=== PATIENT | female | born 1950 | race Caucasian/White ===

== ENCOUNTER → 2016-07-25 | Outpatient (CLI) | payer BC ==
[~2016-07-25] MED LIST: CPR500 PO; DLN100 PO; LEVE500T13 PO; LEVE750T PO; MTR500 PO; SACC250C3 PO
--- NOTE | 2016-07-26 14:39 | EEG Procedure Note ---
EEG Procedure Note Date of Service Jul 25, 2016. Start / End Times Start Time: 1:51 PM End Time: 2:[address] Herrera History This is a 66-year-old female who presents with a history of epilepsy and brain tumor removal in November 2015. EEG for further evaluation of seizure etiology and medication management. Home Medication List Scheduled Levetiracetam (Keppra), 750 MG PO QPM Phenytoin Sodium (Dilantin), 100 MG PO QPM Description This is a 21 electrode EEG with a single channel dedicated to limited EKG. The electrodes were placed in accordance with the International 10-20 system. At the start of the recording the patient was in an awake state. Background was well organized and composed of mixed alpha and beta frequencies. There was a symmetric well-formed moderate amplitude 9-10 Hz posterior dominant rhythm that was reactive to eye opening and closure. Hyperventilation was not done. Intermittent photic stimulation at various frequencies produced no abnormalities. Sleep was indicated by vertex waves and symmetric sleep spindles. There was near continuous mild theta slowing in the left temporal region. Interpretation This is an abnormal routine EEG secondary to near continuous mild slowing in the left temporal region. There was no electrographic seizures or epileptiform discharges. Clinical Correlation This EEG indicates a structural or functional cerebral dysfunction in the left temporal area. This would be consistent with the patient's known neurosurgery in that area. An EEG does not rule out seizures or epilepsy if there is a strong clinical suspicion.
== END | disposition home or self-care (01) ==
LOC: C.NEUR 13:35
PROVIDERS: ATTEND Family Medicine
DX: G40.309 Generalized idiopathic epilepsy and epileptic syndromes, not intractable, without status epilepticus (principal)

== ENCOUNTER → 2016-07-28 | Outpatient (CLI) | payer BC ==
[~2016-07-28] MED LIST changes: +GADAVIST IV PRN
--- NOTE | 2016-07-28 17:58 | DIAGNOSTIC IMAGING REPORT ---
MRI OF THE BRAIN WITHOUT AND WITH IV CONTRAST CLINICAL HISTORY: MENINGIOMA postoperative evaluation COMPARISON STUDY: 11/03/2015 TECHNIQUE: Utilizing a 1.5 Joselyn magnet and dedicated coil, multiplanar, multiecho imaging of the brain was performed pre and postcontrast administration. IV administration of 8.5 mL of Gadavist contrast was uneventful. FINDINGS: Interval resection of the large left sphenoid wing meningioma. No evidence for significant postcontrast residual. Small postprocedural arachnoid cyst medial aspect left temporal lobe at its inferior margin. Ventricular system is now midline. Structures the sella and parasellar region currently are unremarkable. There is no evidence for significant component of residual postcontrast enhancement. Pontine region is unremarkable. Third and fourth ventricles are now midline. Signal characteristics the cerebellar as well as cerebral hemispheres currently are unremarkable. There is no evidence for residual mass or collection. IMPRESSION: 1. Interval resection of what appears to be the entire left sphenoid wing meningioma. As described. 2. No significant residual or significant postcontrast enhancement. 3. Small focus of encephalomalacia versus a small arachnoid cyst medial inferior left temporal fossa. This presumably has a postoperative finding. Electronically signed by: Marquis Flores M.D. 07/28/2016 5:56 PM Dictated Date/Time: 07/28/2016 5:50 PM
== END | disposition home or self-care (01) ==
LOC: C.MRI 16:29
PROVIDERS: ATTEND Neurological Surgery
DX: D32.9 Benign neoplasm of meninges, unspecified (principal)

== ENCOUNTER 2016-11-15 07:36 | Inpatient (IN) | payer BC ==
[~2016-11-15] VITALS: Ht 162.6 cm; Wt 56.1 kg
[~2016-11-15 07:36] MED LIST changes: -CPR500 PO; -GADAVIST IV PRN; -LEVE500T13 PO; -MTR500 PO; -SACC250C3 PO
[2016-11-15] MEDS ORDERED: SODIUM CHLORIDE 0.9% 1000ML 1,000 ML IV STA (07:52)
[2016-11-15] MEDS ORDERED: MoRPHine SULFATE 4 MG/ML 1 ML CARP\\VIAL IV STA ×2 (07:52→11:45)
[2016-11-15] MEDS ORDERED: OPTIRAY 320 IV PRN (08:00)
[2016-11-15] MEDS ORDERED: LEVE500T13 PO (08:02)
[2016-11-15 08:10] LABS: BASO % 0.6 %; BASO ABS # 0.05 K/uL (0-0.2); COMPLETE YES; EOS % 1.2 %; IG% 0.2 %; LYMPH % 15.8 %; LYMPH ABS # 1.36 K/uL (1.2-3.4); MEAN CELL VOLUME 88.6 fL (80-100); MEAN CORPUSCULAR HEMOGLOBIN 30.5 pg (25-34); MEAN CORPUSCULAR HGB CONC 34.4 g/dl (32-36); MEAN PLATELET VOLUME 12.3 fL (7.4-10.4); MONO % 8.6 %; NEUT % 73.6 %; PLATELET COUNT 211 K/uL (130-400); RED BLOOD COUNT 4.63 M/uL (4.2-5.4); WHITE BLOOD COUNT 8.59 K/uL (4.8-10.8)
[2016-11-15 08:32] LABS: BUN/CREATININE RATIO 23.5 (10-20); C-REACTIVE PROTEIN 12.8 mg/dl (0-0.29); CREATININE 0.72 mg/dl (0.60-1.20); POTASSIUM 3.6 mmol/L (3.5-5.1)
[2016-11-15 08:43] LABS: CALCIUM 8.4 mg/dl (8.5-10.1)
[2016-11-15 09:12] LABS: MANUAL MICROSCOPIC REQUIRED? NO; REVIEW REQ? NO; URINE APPEARANCE CLEAR (CLEAR); URINE BILIRUBIN NEG (NEG); URINE COLOR DK YELLOW; URINE EPITHELIAL CELL AUTO >30 /lpf (0-5); URINE NITRITE NEG (NEG); URINE PH 5.5 (4.5-7.5); URINE SPECIFIC GRAVITY 1.025 (1.000-1.030); UROBILINOGEN NEG (NEG)
--- NOTE | 2016-11-15 10:38 | DIAGNOSTIC IMAGING REPORT ---
CT ABD/PELVIS IV AND ORAL CONT CLINICAL HISTORY: Abdominal pain COMPARISON STUDY: None. TECHNIQUE: Following the IV administration of 92 mL of Optiray-320, CT scan of the abdomen and pelvis was performed from the lung bases to the proximal femurs. Images are reviewed in the axial, sagittal, and coronal planes. IV contrast was administered without complication. CT DOSE: 344.41 mGycm FINDINGS: Lower chest: There are mild basilar atelectatic changes. Liver: The contrast-enhanced liver is normal in size, contour, and attenuation. There is no intrahepatic biliary ductal dilatation. The hepatic veins and portal veins are patent. Gallbladder: Unremarkable. Spleen: Normal in size and attenuation. Pancreas: Unremarkable. Adrenal glands: Unremarkable. Kidneys: There is a 4 mm fat-containing left adrenal nodule consistent with an angiomyolipoma. There is mild fullness of each renal collecting system. Bowel: There are no transition zones indicate bowel obstruction. The appendix appears normal. There is sausagelike thickening of the sigmoid colon with infiltration of the pericolonic fat. There is an equivocal 13 mm intramural abscess. The findings likely represent acute diverticulitis. Peritoneum: There is no intraperitoneal free air or abdominal ascites. Vasculature: The abdominal aorta is normal in course and caliber. Adenopathy: None. Pelvic viscera: The bladder, and pelvic viscera are unremarkable. Skeletal structures: No destructive osseous lesions are seen. IMPRESSION: 1. Acute sigmoid diverticulitis. Possible 13 mm intramural abscess. No evidence of bowel obstruction. No evidence of free air. Electronically signed by: Efra Singh M.D. 11/15/2016 10:36 AM Dictated Date/Time: 11/15/2016 10:31 AM
[2016-11-15] MEDS ORDERED: PIPERACILLIN/TAZOBACTAM 4.5 GM/100ML D5W IV STA (11:30)
--- NOTE | 2016-11-15 11:30 | EMERGENCY ROOM VISIT NOTE ---
History First contact with patient: 07:45 Chief Complaint: ABDOMINAL PAIN Stated Complaint: SEVERE ABD. PAIN Nursing Triage Summary: ibs flare up for 2 weeks cramping and diarrhea History of Present Illness The patient is a 66 year old female who presents to the Emergency Room with complaints of lower abdominal pain for the past 2 weeks. Describes the pain as constant, crampy and occasionally sharp, 7/10. She has taken Motrin for her pain with some improvement, last dose was yesterday. She states her symptoms initially started with some diarrhea, now she has felt constipated for the past several days. She denies any bloody or black tarry stools. She states this is a new problem for her and she has never had pain like this before. No history of abdominal surgeries. She denies fevers, chills, nausea, vomiting, back pain , chest pain, shortness of breath, vaginal discharge or bleeding, dysuria, hematuria. Review of Systems GENERAL: + Fatigue. Denies fevers, chills, malaise, unintentional weight changes. HEENT: Denies dizziness, visual problems, hearing loss, tinnitus. Denies difficulty swallowing or oral lesions. PULMONARY: Denies cough, shortness of breath, sputum production or hemoptysis. CARDIOVASCULAR: Denies chest pain, palpitations, dyspnea on exertion, orthopnea or peripheral edema. GASTROINTESTINAL: + Abdominal pain, diarrhea, constipation. Denies nausea, vomiting, or hematochezia. GENITOURINARY: Denies dysuria, frequency, urgency or nocturia. Denies hematuria. Denies vaginal discharge or bleeding. NEUROLOGIC: Denies history of epilepsy, CVA, TIA or chronic headaches. History of brain tumor that was surgically removed. MUSCULOSKELETAL: Denies history of joint tenderness/swelling. SKIN: Denies rashes or lesions. PSYCHIATRIC: Denies history of depression or mental illness. ENDOCRINE: Denies history of diabetes, thyroid disorders, abnormal hair growth or sexual dysfunction. Past Medical/Surgical History Medical Problems: (1) Colonic diverticular abscess (2) IBS (irritable bowel syndrome) Surgical Problems: (1) Meningioma Family History Diabetes mellitus FH: heart disease Seizures Social History Smoking Status: Never Smoker Drug Use: none Marital Status: Housing Status: lives with family Current/Historical Medications Scheduled Levetiracetam (Keppra), 500 MG PO QPM Allergies Coded Allergies: NUTS (Verified Allergy, Intermediate, unknown, 11/15/16) Sharla (Verified Allergy, Intermediate, unknown, 11/15/16) Physical Exam Vital Signs Date Time Temp Pulse Resp B/P (MAP) Pulse Ox O2 Delivery O2 Flow Rate FiO2 11/15/16 12:50 98 Room Air 11/15/16 11:53 70 15 122/66 98 Room Air 11/15/16 11:01 65 18 109/65 99 Room Air 11/15/16 09:28 66 18 96/55 98 Room Air 11/15/16 07:41 36.6 88 20 113/69 97 Room Air Physical Exam CONSTITUTIONAL: No acute distress. Nontoxic appearing. Well appearing and well nourished. Mildly dehydrated. Alert and oriented X 4 with normal affect. HEENT: Normocephalic, atraumatic. Pupils equal, round and reactive to light, EOMI. TMs normal. Pharynx normal. Dry mucous membranes. NECK: Supple, full active range of motion without discomfort. RESPIRATORY: Clear to auscultation bilaterally with no wheezing, crackles, rhonchi or stridor. Equal expansion bilaterally. CARDIOVASCULAR: Regular rate and rhythm with no murmurs, rubs or gallops. Normal peripheral perfusion. No edema. GASTROINTESTINAL: Diffusely tender in the bilateral lower quadrants. No rebound , no guarding. Soft, nondistended. Bowel sounds present in all quadrants. MUSCULOSKELETAL: Full range of motion of all joints without discomfort. INTEGUMENTARY: No rash or other significant dermatologic conditions noted. NEUROLOGIC: Cranial nerves II-XII grossly intact. No focal neurologic deficits noted. Medical Decision & Procedures ER Provider Diagnostic Interpretation: CT ABD/PELVIS IV AND ORAL CONT CLINICAL HISTORY: Abdominal pain COMPARISON STUDY: None. TECHNIQUE: Following the IV administration of 92 mL of Optiray-320, CT scan of the abdomen and pelvis was performed from the lung bases to the proximal femurs. Images are reviewed in the axial, sagittal, and coronal planes. IV contrast was administered without complication. CT DOSE: 344.41 mGycm FINDINGS: Lower chest: There are mild basilar atelectatic changes. Liver: The contrast-enhanced liver is normal in size, contour, and attenuation. There is no intrahepatic biliary ductal dilatation. The hepatic veins and portal veins are patent. Gallbladder: Unremarkable. Spleen: Normal in size and attenuation. Pancreas: Unremarkable. Adrenal glands: Unremarkable. Kidneys: There is a 4 mm fat-containing left adrenal nodule consistent with an angiomyolipoma. There is mild fullness of each renal collecting system. Bowel: There are no transition zones indicate bowel obstruction. The appendix appears normal. There is sausagelike thickening of the sigmoid colon with infiltration of the pericolonic fat. There is an equivocal 13 mm intramural abscess. The findings likely represent acute diverticulitis. Peritoneum: There is no intraperitoneal free air or abdominal ascites. Vasculature: The abdominal aorta is normal in course and caliber. Adenopathy: None. Pelvic viscera: The bladder, and pelvic viscera are unremarkable. Skeletal structures: No destructive osseous lesions are seen. IMPRESSION: 1. Acute sigmoid diverticulitis. Possible 13 mm intramural abscess. No evidence of bowel obstruction. No evidence of free air. Laboratory Results 11/15/16 07:50 Red Blood Count 4.63, Mean Corpuscular Volume 88.6, Mean Corpuscular Hemoglobin 30.5, Mean Corpuscular Hemoglobin Concent 34.4, Mean Platelet Volume 12.3, Neutrophils (%) (Auto) 73.6, Lymphocytes (%) (Auto) 15.8, Monocytes (%) (Auto) 8.6, Eosinophils (%) (Auto) 1.2, Basophils (%) (Auto) 0.6, Neutrophils # (Auto) 6.32, Lymphocytes # (Auto) 1.36, Monocytes # (Auto) 0.74, Eosinophils # (Auto) 0.10, Basophils # (Auto) 0.05 11/15/16 07:50 Test 11/15/16 07:50 11/15/16 08:05 White Blood Count 8.59 K/uL (4.8-10.8) Red Blood Count 4.63 M/uL (4.2-5.4) Hemoglobin 14.1 g/dL (12.0-16.0) Hematocrit 41.0 % (37-47) Mean Corpuscular Volume 88.6 fL (80-100) Mean Corpuscular Hemoglobin 30.5 pg (25-34) Mean Corpuscular Hemoglobin Concent 34.4 g/dl (32-36) Platelet Count 211 K/uL (130-400) Mean Platelet Volume 12.3 fL (7.4-10.4) Neutrophils (%) (Auto) 73.6 % Lymphocytes (%) (Auto) 15.8 % Monocytes (%) (Auto) 8.6 % Eosinophils (%) (Auto) 1.2 % Basophils (%) (Auto) 0.6 % Neutrophils # (Auto) 6.32 K/uL (1.4-6.5) Lymphocytes # (Auto) 1.36 K/uL (1.2-3.4) Monocytes # (Auto) 0.74 K/uL (0.11-0.59) Eosinophils # (Auto) 0.10 K/uL (0-0.5) Basophils # (Auto) 0.05 K/uL (0-0.2) RDW Standard Deviation 40.7 fL (36.4-46.3) RDW Coefficient of Variation 12.6 % (11.5-14.5) Immature Granulocyte % (Auto) 0.2 % Immature Granulocyte # (Auto) 0.02 K/uL (0.00-0.02) Erythrocyte Sedimentation Rate 39 mm/hr (0-21) Anion Gap 4.0 mmol/L (3-11) Est Creatinine Clear Calc Drug Dose 67.3 ml/min Estimated GFR () 101.9 Estimated GFR (Non- 87.9 BUN/Creatinine Ratio 23.5 (10-20) Calcium Level 8.4 mg/dl (8.5-10.1) Total Bilirubin 1.0 mg/dl (0.2-1) Direct Bilirubin 0.2 mg/dl (0-0.2) Aspartate Amino Transf (AST/SGOT) 10 U/L (15-37) Alanine Aminotransferase (ALT/SGPT) 13 U/L (12-78) Alkaline Phosphatase 79 U/L (45-117) C-Reactive Protein 12.80 mg/dl (0-0.29) Total Protein 6.9 gm/dl (6.4-8.2) Albumin 3.1 gm/dl (3.4-5.0) Lipase 117 U/L (73-393) Urine Color DK YELLOW Urine Appearance CLEAR (CLEAR) Urine pH 5.5 (4.5-7.5) Urine Specific [place] 1.025 (1.000-1.030) Urine Protein NEG (NEG) Urine Glucose (UA) NEG (NEG) Urine Ketones TRACE (NEG) Urine Occult Blood 1+ (NEG) Urine Nitrite NEG (NEG) Urine Bilirubin NEG (NEG) Urine Urobilinogen NEG (NEG) Urine Leukocyte Esterase TRACE (NEG) Urine WBC (Auto) 1-5 /hpf (0-5) Urine RBC (Auto) 5-10 /hpf (0-4) Urine Hyaline Casts (Auto) 5-10 /lpf (0-5) Urine Epithelial Cells (Auto) >30 /lpf (0-5) Urine Bacteria (Auto) NEG (NEG) Medications Administered Medications (Trade) Dose Ordered Sig/Jewel Route Start Time Stop Time Status Last Admin Dose Admin Sodium Chloride 1,000 ml @ 999 mls/hr Q1H1M STAT IV 11/15/16 07:52 11/15/16 08:52 DC 11/15/16 07:52 999 MLS/HR Morphine Sulfate (MoRPHine SULFATE INJ) 4 mg NOW STAT IV 11/15/16 07:52 11/15/16 07:56 DC 11/15/16 07:52 4 MG Piperacillin Sod/ Tazobactam Sod (Zosyn Iv) 4.5 gm NOW STAT IV 11/15/16 11:30 11/15/16 11:31 DC 11/15/16 11:30 4.5 GM Morphine Sulfate (MoRPHine SULFATE INJ) 4 mg NOW STAT IV 11/15/16 11:45 11/15/16 11:46 DC 11/15/16 11:50 4 MG Medical Decision CC: Patient presenting with complaint of lower abdominal pain Interpretation of Labs: No leukocytosis, no anemia, no significant electrolyte abnormalities, normal renal function, normal liver function, no UTI. Differential Diagnosis: Includes, but not limited to appendicitis, colitis, diverticulitis, inflammatory bowel disease, IBS, constipation, gastroenteritis, UTI. Medication Reconciliation: I attest that I have personally reviewed the patient' s current medication list. Vital signs review: I reviewed the patient's vital signs and interpret them as follows: T: Afebrile; BP: Normotensive; HR: Within normal limits; RR: Within normal limits; Pulse Ox: Normal limits on room air. Blood pressure screening: The patient was found to have normal blood pressure on screening and does not require follow-up for repeat blood pressure check. Summary: Patient was evaluated at bedside, history of physical exam performed. Alert and oriented, no acute distress but does appear to be in some pain. Diffuse lower abdomen tenderness on exam. No rebound or guarding, no peritoneal signs. Orders were placed at bedside for labs, UA, IV fluids and pain medication, CT abdomen/pelvis to evaluate for acute intra-abdominal abnormalities. Patient discussed with Dr. Rojas, who agrees with my assessment and plan. Labs reviewed, grossly unremarkable as discussed above. CT reviewed, shows acute diverticulitis with questionable developing abscess. IV Zosyn ordered. Patient reassessed multiple times throughout ED stay, pain is adequately managed with IV morphine and she appears more comfortable. I discussed results with patient and plan for admission. She verbalized understanding and is agreeable to admission at this time. I discussed with hospitalist for admission, Dr. Caruso agreeable to admission. Impression Primary Impression: Acute diverticulitis Departure Information Referrals Billy Herrera M.D. (PCP) Patient Instructions [facility]
[2016-11-15] MEDS ORDERED: MoRPHine SULFATE 4 MG/ML 1 ML CARP\\VIAL IV PRN (12:45)
[2016-11-15 12:50] VITALS: O2SAT 98; Ht 162.6 cm; Wt 56.1 kg
[2016-11-15] MEDS ORDERED: MoRPHine SULFATE 2 MG/ML CARP IV PRN (13:00)
[2016-11-15] MEDS ORDERED: PIPERACILL/TAZOBAC CONSULT ACTIVE PRN (13:15)
[2016-11-15] MEDS ORDERED: VANCOMYCIN CONSULT ACTIVE PRN (13:15)
[2016-11-15] MEDS ORDERED: VANCOMYCIN INJ 1,250 MG in SODIUM CHLORIDE 0.9% 250ML 250 ML IV SCH (13:30)
[2016-11-15 14:41] VITALS: BP 103/64; PULSE 76; TEMP 36.7; O2SAT 99
--- NOTE | 2016-11-15 14:41 | Pharmacy Progress Note ---
Pharmacy Abx Initial Consult Date of Service Nov 15, 2016. Pharmacy Dosing Scope Date of Consult: 11/15/16 Pharmacy is consulted to initiate Vancomycin/Zosyn IV dosing therapy, order appropriate labs and adjust drug dose/frequency. Subjective The patient is a 66 year old female admitted on Nov 15, 2016 at 12:51 with severe abdominal pain. Objective Height (Feet): 5 Height (Inches): 4.00 Weight (Kilograms): 56.100 Vital Signs (Past 12Hrs) Vital Signs Past 12 Hours Date Time Temp Pulse Resp B/P (MAP) Pulse Ox O2 Delivery O2 Flow Rate FiO2 11/15/16 13:42 36.6 70 18 122/66 98 11/15/16 13:35 70 11/15/16 13:22 75 18 122/66 98 Room Air 11/15/16 12:50 98 Room Air 11/15/16 11:53 70 15 122/66 98 Room Air 11/15/16 11:01 65 18 109/65 99 Room Air 11/15/16 09:28 66 18 96/55 98 Room Air 11/15/16 07:41 36.6 88 20 113/69 97 Room Air Lab Results (24Hrs) Test 11/15/16 07:50 11/15/16 08:05 White Blood Count 8.59 K/uL (4.8-10.8) Red Blood Count 4.63 M/uL (4.2-5.4) Hemoglobin 14.1 g/dL (12.0-16.0) Hematocrit 41.0 % (37-47) Mean Corpuscular Volume 88.6 fL (80-100) Mean Corpuscular Hemoglobin 30.5 pg (25-34) Mean Corpuscular Hemoglobin Concent 34.4 g/dl (32-36) Platelet Count 211 K/uL (130-400) Mean Platelet Volume 12.3 fL (7.4-10.4) Neutrophils (%) (Auto) 73.6 % Lymphocytes (%) (Auto) 15.8 % Monocytes (%) (Auto) 8.6 % Eosinophils (%) (Auto) 1.2 % Basophils (%) (Auto) 0.6 % Neutrophils # (Auto) 6.32 K/uL (1.4-6.5) Lymphocytes # (Auto) 1.36 K/uL (1.2-3.4) Monocytes # (Auto) 0.74 K/uL (0.11-0.59) Eosinophils # (Auto) 0.10 K/uL (0-0.5) Basophils # (Auto) 0.05 K/uL (0-0.2) RDW Standard Deviation 40.7 fL (36.4-46.3) RDW Coefficient of Variation 12.6 % (11.5-14.5) Immature Granulocyte % (Auto) 0.2 % Immature Granulocyte # (Auto) 0.02 K/uL (0.00-0.02) Erythrocyte Sedimentation Rate 39 mm/hr (0-21) Sodium Level 142 mmol/L (136-145) Potassium Level 3.6 mmol/L (3.5-5.1) Chloride Level 106 mmol/L (98-107) Carbon Dioxide Level 32 mmol/L (21-32) Anion Gap 4.0 mmol/L (3-11) Blood Urea Nitrogen 17 mg/dl (7-18) Creatinine 0.72 mg/dl (0.60-1.20) Est Creatinine Clear Calc Drug Dose 67.3 ml/min Estimated GFR () 101.9 Estimated GFR (Non- 87.9 BUN/Creatinine Ratio 23.5 (10-20) Random Glucose 94 mg/dl (70-99) Calcium Level 8.4 mg/dl (8.5-10.1) Total Bilirubin 1.0 mg/dl (0.2-1) Direct Bilirubin 0.2 mg/dl (0-0.2) Aspartate Amino Transf (AST/SGOT) 10 U/L (15-37) Alanine Aminotransferase (ALT/SGPT) 13 U/L (12-78) Alkaline Phosphatase 79 U/L (45-117) C-Reactive Protein 12.80 mg/dl (0-0.29) Total Protein 6.9 gm/dl (6.4-8.2) Albumin 3.1 gm/dl (3.4-5.0) Lipase 117 U/L (73-393) Urine Color DK YELLOW Urine Appearance CLEAR (CLEAR) Urine pH 5.5 (4.5-7.5) Urine Specific [place] 1.025 (1.000-1.030) Urine Protein NEG (NEG) Urine Glucose (UA) NEG (NEG) Urine Ketones TRACE (NEG) Urine Occult Blood 1+ (NEG) Urine Nitrite NEG (NEG) Urine Bilirubin NEG (NEG) Urine Urobilinogen NEG (NEG) Urine Leukocyte Esterase TRACE (NEG) Urine WBC (Auto) 1-5 /hpf (0-5) Urine RBC (Auto) 5-10 /hpf (0-4) Urine Hyaline Casts (Auto) 5-10 /lpf (0-5) Urine Epithelial Cells (Auto) >30 /lpf (0-5) Urine Bacteria (Auto) NEG (NEG) Assessment & Plan Assessment 66 year old female initiated on Vancomycin and Zosyn IV upon admission for severe abdominal pain. No further info regarding patient available to pharmacy at this time. No cultures pending. Plan Vancomycin IV * Loading dose: 1250 mg (22 mg/kg) * Maintenance dose: 750 mg IV (13.5 mg/kg) every 12 hours * Goal trough level for GI source?: ~15 mcg/mL * Trough level ordered for 11/17/16 @1330 prior to the 1400 dose. Piperacillin/tazobactam * 4.5 g bolus administered over 30 minutes in ED, then 3.375 g IV extended infusion every 8 hours for CrCl greater than 20 mL/min Pharmacy will continue to follow and will adjust dose/frequency as necessary. Thank you.
[2016-11-15] MEDS: NSS + 20MEQ KCL 1000ML 1,000 ML IV SCH (15:25)
--- NOTE | 2016-11-15 15:26 | History and Physical ---
History & Physical Date & Time of Service: Nov 15, 2016 at 15:21 Chief Complaint: Acute Diverticulitis, Colonic Diverticular Abscess Primary Care Physician: Billy Herrera M.D. History of Present Illness Source: patient The patient is a 66-year-old female presents emergency department with complaints of abdominal cramping and diarrhea but she thought was not IBS flareup over the past 2 weeks. His symptoms worsened this morning, and she was presents emergency department for assessment. She has not had any recent travels or sick exposures. She has not had any change in dietary intake. She is not on any medications either prescription or OTC. She denies any blood in stool. She has not had any fevers or chills. Past Medical/Surgical History Medical Problems: (1) IBS (irritable bowel syndrome) Status: Chronic Surgical Problems: (1) Meningioma Status: Resolved Family History Diabetes mellitus FH: heart disease Seizures Social History Smoking Status: Never Smoker Smokeless Tobacco Use: No Alcohol Use: none Drug Use: none Marital Status: Housing status: lives with family Multi-Drug Resistant Organisms History of MDRO: No Allergies Coded Allergies: NUTS (Verified Allergy, Intermediate, unknown, 11/15/16) Parsley (Verified Allergy, Intermediate, unknown, 11/15/16) Home Medications Scheduled Levetiracetam (Keppra), 500 MG PO QPM Review of Systems The patient denies chest pain, palpitations, shortness of breath, cough, lower extremity swelling, vision change, hearing change, sore throat, fevers, chills, sweats, weight change, fatigue, nausea, vomiting, blood in urine or stool, dysuria, urinary frequency or urgency, lightheadedness, dizziness, headache, memory loss, rash, abnormal bruising or bleeding, imbalance, focal or generalized weakness, numbness or tingling in arms or legs, arthralgias or myalgias, back or neck pain, night sweats, or allergy symptoms. The review of systems is otherwise negative other than for that already noted above, and at least 10 systems have been reviewed. Physical Exam Vital Signs Date Time Temp Pulse Resp B/P (MAP) Pulse Ox O2 Delivery O2 Flow Rate FiO2 11/15/16 14:41 36.7 76 16 103/64 (77) 99 11/15/16 13:42 36.6 70 18 122/66 98 11/15/16 13:35 70 11/15/16 13:22 75 18 122/66 98 Room Air 11/15/16 12:50 98 Room Air 11/15/16 11:53 70 15 122/66 98 Room Air 11/15/16 11:01 65 18 109/65 99 Room Air 11/15/16 09:28 66 18 96/55 98 Room Air 11/15/16 07:41 36.6 88 20 113/69 97 Room Air The patient is awake, well-developed and adequately nourished, alert and oriented 3, normocephalic and atraumatic, lying in bed and in no acute distress. HEENT--PERRL, EOMI, mucous membranes and oropharynx dry. Neck--supple, no JVD or bruits, thyroid normal, trachea midline, no adenopathy. Heart--normal S1 and S2, no extra beats, no murmurs, rubs or gallops. Lungs--clear bilaterally with good air movement, no respiratory distress, no accessory muscle use. Abdomen--normal bowel sounds and soft, tender left lower quadrant, nondistended , no hernias or masses, no organomegaly. Extremities--no cyanosis, clubbing or edema. There are good distal pulses b/l. Dermatologic--normal skin turgor, normal color, warm and dry, no abnormal lymph nodes, no rash. Neurologic--cranial nerves II through XII grossly intact, motor and sensory examination normal. Rheumatologic--normal range of motion, nontender, muscles and joints. Psychiatric--normal affect. Diagnostics Laboratory Results Results Past 24 Hours Test 11/15/16 07:50 11/15/16 08:05 Range/Units White Blood Count 8.59 4.8-10.8 K/uL Red Blood Count 4.63 4.2-5.4 M/uL Hemoglobin 14.1 12.0-16.0 g/dL Hematocrit 41.0 37-47 % Mean Corpuscular Volume 88.6 80-100 fL Mean Corpuscular Hemoglobin 30.5 25-34 pg Mean Corpuscular Hemoglobin Concent 34.4 32-36 g/dl Platelet Count 211 130-400 K/uL Mean Platelet Volume 12.3 7.4-10.4 fL Neutrophils (%) (Auto) 73.6 % Lymphocytes (%) (Auto) 15.8 % Monocytes (%) (Auto) 8.6 % Eosinophils (%) (Auto) 1.2 % Basophils (%) (Auto) 0.6 % Neutrophils # (Auto) 6.32 1.4-6.5 K/uL Lymphocytes # (Auto) 1.36 1.2-3.4 K/uL Monocytes # (Auto) 0.74 0.11-0.59 K/uL Eosinophils # (Auto) 0.10 0-0.5 K/uL Basophils # (Auto) 0.05 0-0.2 K/uL RDW Standard Deviation 40.7 36.4-46.3 fL RDW Coefficient of Variation 12.6 11.5-14.5 % Immature Granulocyte % (Auto) 0.2 % Immature Granulocyte # (Auto) 0.02 0.00-0.02 K/uL Erythrocyte Sedimentation Rate 39 0-21 mm/hr Sodium Level 142 136-145 mmol/L Potassium Level 3.6 3.5-5.1 mmol/L Chloride Level 106 98-107 mmol/L Carbon Dioxide Level 32 21-32 mmol/L Anion Gap 4.0 3-11 mmol/L Blood Urea Nitrogen 17 7-18 mg/dl Creatinine 0.72 0.60-1.20 mg/dl Est Creatinine Clear Calc Drug Dose 67.3 ml/min Estimated GFR () 101.9 Estimated GFR (Non- 87.9 BUN/Creatinine Ratio 23.5 10-20 Random Glucose 94 70-99 mg/dl Calcium Level 8.4 8.5-10.1 mg/dl Total Bilirubin 1.0 0.2-1 mg/dl Direct Bilirubin 0.2 0-0.2 mg/dl Aspartate Amino Transf (AST/SGOT) 10 15-37 U/L Alanine Aminotransferase (ALT/SGPT) 13 12-78 U/L Alkaline Phosphatase 79 45-117 U/L C-Reactive Protein 12.80 0-0.29 mg/dl Total Protein 6.9 6.4-8.2 gm/dl Albumin 3.1 3.4-5.0 gm/dl Lipase 117 73-393 U/L Urine Color DK YELLOW Urine Appearance CLEAR CLEAR Urine pH 5.5 4.5-7.5 Urine Specific [place] 1.025 1.000-1.030 Urine Protein NEG NEG Urine Glucose (UA) NEG NEG Urine Ketones TRACE NEG Urine Occult Blood 1+ NEG Urine Nitrite NEG NEG Urine Bilirubin NEG NEG Urine Urobilinogen NEG NEG Urine Leukocyte Esterase TRACE NEG Urine WBC (Auto) 1-5 0-5 /hpf Urine RBC (Auto) 5-10 0-4 /hpf Urine Hyaline Casts (Auto) 5-10 0-5 /lpf Urine Epithelial Cells (Auto) >30 0-5 /lpf Urine Bacteria (Auto) NEG NEG Diagnostic Radiology Patient Name: SUNITHA MUÑOZ Unit Number: [id number] Dictated: 11/15/161030 Transcribed: 11/15/161030 ARG Printed Date/Time: [~ rep prt dt]/[~ rep prt tm] [~ rep ct labl] - [~ rep ct ivnm] [facility] Radiology Department [place], [place] [id number] Dictated: 11/15/161030 Transcribed: 11/15/161030 ARG Printed Date/Time: [~ rep prt dt]/[~ rep prt tm] [~ rep ct labl] - [~ rep ct ivnm] CT ABD/PELVIS IV AND ORAL CONT CLINICAL HISTORY: Abdominal pain COMPARISON STUDY: None. TECHNIQUE: Following the IV administration of 92 mL of Optiray-320, CT scan of the abdomen and pelvis was performed from the lung bases to the proximal femurs. Images are reviewed in the axial, sagittal, and coronal planes. IV contrast was administered without complication. CT DOSE: 344.41 mGycm FINDINGS: Lower chest: There are mild basilar atelectatic changes. Liver: The contrast-enhanced liver is normal in size, contour, and attenuation. There is no intrahepatic biliary ductal dilatation. The hepatic veins and portal veins are patent. Gallbladder: Unremarkable. Spleen: Normal in size and attenuation. Pancreas: Unremarkable. Adrenal glands: Unremarkable. Kidneys: There is a 4 mm fat-containing left adrenal nodule consistent with an angiomyolipoma. There is mild fullness of each renal collecting system. Bowel: There are no transition zones indicate bowel obstruction. The appendix appears normal. There is sausagelike thickening of the sigmoid colon with infiltration of the pericolonic fat. There is an equivocal 13 mm intramural abscess. The findings likely represent acute diverticulitis. Peritoneum: There is no intraperitoneal free air or abdominal ascites. Vasculature: The abdominal aorta is normal in course and caliber. Adenopathy: None. Pelvic viscera: The bladder, and pelvic viscera are unremarkable. Skeletal structures: No destructive osseous lesions are seen. IMPRESSION: 1. Acute sigmoid diverticulitis. Possible 13 mm intramural abscess. No evidence of bowel obstruction. No evidence of free air. Electronically signed by: Efra Singh M.D. 11/15/2016 10:36 AM Dictated Date/Time: 11/15/2016 10:31 AM The status of this report is Signed. Draft = Not yet reviewed or approved by Radiologist. Signed = Reviewed and approved by Radiologist. <AttendingPhy></AttendingPhy> <FamilyPhy>Billy Herrera M.D.</FamilyPhy> < PrimaryPhy>Billy Herrera M.D.</PrimaryPhy> <UnitNumber>[id number]</ UnitNumber> <VisitNumber>[id number]</VisitNumber> <PatientName>ADRIANA MUÑOZWOJCIECHCosta< /PatientName> <DateOfBirth>1950</DateOfBirth> <Location>[facility]</Location> < ServiceDate>11/15/16</ServiceDate> <MNE>ESINDI</MNE> <OrderingPhy>Elaine Barillas</OrderingPhy> <OrderingPhyMNE>f rep ord dr chaney</OrderingPhyMNE> < DictatingPhyMNE>f rep dict dr chaney</DictatingPhyMNE> <CCListMNE>f rep ct shiv</ CCListMNE> <AdmittingPhyMNE>f pt admit dr chaney</AdmittingPhyMNE> <AttendingPhyMNE >f pt attend dr chaney</AttendingPhyMNE> <ConsultingPhyMNE>f pt consult dr chaney</ConsultingPhyMNE> <FamilyPhyMNE>f pt fam dr chaney</FamilyPhyMNE> <OtherPhyMNE>f pt other dr chaney</OtherPhyMNE> < PrimaryPhyMNE>f pt prim care dr chaney</PrimaryPhyMNE> <ReferringPhyMNE>f pt referring dr chaney</ReferringPhyMNE> Impression Assessment and Plan Acute diverticulitis with transmural abscess--the patient be admitted to the medical surgical floor. She'll be allowed sips of water. Place on normal saline with potassium chloride 20 mEq 100 mils per hour, Zosyn 3.375 mg IV every 6 hours, Protonix 40 mg IV daily, Zofran 4 mg IV every 6 hours when necessary. She has never had a colonoscopy. Consult gastroenterology to see patient in hospital and will need to be seen status post hospital follow-up. Follow serial laboratories. Seizure disorder--continue Keppra 500 mg by mouth every evening. Level of Care Med/Surg Advanced Directives Existing Advance Directive: No Existing Living Will: No Existing Power of Craft Superintendent: No Resuscitation Status FULL RESUSCITATION VTE Prophylaxis VTE Risk Assessment Done? Y/N: Yes Risk Level: Moderate Given or contraindicated: SCD's Social Service Consult None Apply
[2016-11-15 16:00] VITALS: O2SAT 99
[2016-11-15] MEDS: RANITIDINE IV 50 MG in DEXTROSE 5% 100ML 100 ML IV SCH (16:24)
[2016-11-15] MEDS: PIPERACILL/TAZOBAC IV 3.375 GM in DEXTROSE 5% 100ML 100 ML IV SCH (17:07)
[2016-11-15] MEDS: ACETAMINOPHEN IV 100 ML IV PRN (19:31)
[2016-11-15] MEDS: LEVETIRACETAM 500 MG TAB PO SCH (20:21)
--- NOTE | 2016-11-15 21:00 | GASTROINTESTINAL CONSULTATION ---
DATE OF CONSULTATION: 11/15/2016 PAST MEDICAL HISTORY: History of a meningioma, irritable bowel syndrome. PAST SURGICAL HISTORY: Meningioma removal, last year. ALLERGIES: None. MEDICATIONS AT HOME: Include Keppra. MEDICATIONS AT PRESENT: Include vancomycin 750 mg IV q. 12 hours, Zosyn 3.375 grams IV q. 8 hours, Zantac 50 mg IV q. 8 hours, morphine p.r.n. abdominal pain. SOCIAL HISTORY: She denies any tobacco, alcohol or illicit drug use. She is . FAMILY HISTORY: Negative for GI malignancy or inflammatory bowel disease. REVIEW OF SYSTEMS: Negative x10 system review other than pertinent positives listed in the HPI. PHYSICAL EXAMINATION: VITAL SIGNS: Temp 36.7, pulse 76, respirations 16, blood pressure 103/64, pulse ox 99% on room air. GENERAL: She is awake, cooperative, mild distress. HEAD: Normocephalic, atraumatic. EYES: Pupils equally round. Extraocular muscles are intact. ENT: External evaluation of ears and nose are normal. Oropharynx is clear. NECK: Soft, supple. No JVD or lymphadenopathy. CHEST: Clear to auscultation bilaterally. CARDIOVASCULAR: Regular rate and rhythm. ABDOMEN: Soft, tender in left lower quadrant. Nondistended. Positive bowel sounds. There is no hepatosplenomegaly or stigmata of chronic liver disease. EXTREMITIES: No clubbing, cyanosis, or edema. SKIN: Soft, pink. Good turgor. LABORATORY STUDIES AND RADIOGRAPHIC STUDIES: Reviewed in the HPI. IMPRESSION: Tom Borrero is a 66-year-old female with acute diverticulitis with abscess formation. PLAN: At the present time, I would recommend the patient continue on IV Zosyn and vancomycin therapy as per the primary team. I would recommend surgical consultation secondary to abscess formation as she may need further intervention if she does not respond clinically to IV antibiotics. Secondary considerations could be for transfer to a tertiary care center for drainage of the abscess if it does not resolve spontaneously with IV antibiotic therapy. She will need an outpatient colonoscopy in 6 weeks following completion of her antibiotic therapy though she has no indication for emergent endoscopic procedure at this time and in fact endoscopic procedure would be contraindicated as there is an increased risk for colonic perforation with concurrent acute diverticulitis. Once again, thanks for allowing me to participate in the care of this patient. If you have any further questions, please do not hesitate in contacting me.
--- NOTE | 2016-11-15 21:05 | GASTROINTESTINAL CONSULTATION ---
DATE OF CONSULTATION: 11/15/2016 ATTENDING PHYSICIAN: Dr. Vargas. CONSULTING PHYSICIAN: Dr. Murcia. REASON FOR CONSULTATION: Diverticular abscess. HISTORY OF PRESENT ILLNESS: Tom Borrero is a pleasant 66-year-old female, who presented to the Department of Emergency Medicine on November with complaints of left lower quadrant abdominal pain. She stated that her pain was aching, chronic 6-7/10 in intensity, nonradiating. Upon presentation to the Department of Emergency Medicine, she had laboratory studies which showed a white blood cell count of 8.59. Her liver panel was unremarkable. Her C-reactive protein was 12.8, BUN was unremarkable. She had a CT scan of the abdomen and pelvis performed which showed a sigmoid diverticulitis with a possible 13 mm intramural abscess with no evidence of bowel obstruction and no evidence of free air. She subsequently was admitted. She was placed on Zosyn therapy as well as vancomycin therapy and was given IV fluids and morphine for pain control and we were consulted. At the time that I saw the patient, she states that she is feeling slightly improved since her arrival, though does continue to complain of left lower quadrant abdominal pain rated as 4/10 in intensity, nonradiating with no exacerbating factors. It is alleviated with morphine therapy. She states she has never had diverticulitis before nor has she ever had a colonoscopy in the past and states that she is overall generally well and denies any further complaints at this time. PAST MEDICAL HISTORY: History of a meningioma, irritable bowel syndrome. PAST SURGICAL HISTORY: Meningioma removal, last year. ALLERGIES: None. MEDICATIONS AT HOME: Include Keppra. MEDICATIONS AT PRESENT: Include vancomycin 750 mg IV q. 12 hours, Zosyn 3.375 grams IV q. 8 hours, Zantac 50 mg IV q. 8 hours, morphine p.r.n. abdominal pain. SOCIAL HISTORY: She denies any tobacco, alcohol or illicit drug use. She is . FAMILY HISTORY: Negative for GI malignancy or inflammatory bowel disease. REVIEW OF SYSTEMS: Negative x10 system review other than pertinent positives listed in the HPI. PHYSICAL EXAMINATION: VITAL SIGNS: Temp 36.7, pulse 76, respirations 16, blood pressure 103/64, pulse ox 99% on room air. GENERAL: She is awake, cooperative, mild distress. HEAD: Normocephalic, atraumatic. EYES: Pupils equally round. Extraocular muscles are intact. ENT: External evaluation of ears and nose are normal. Oropharynx is clear. NECK: Soft, supple. No JVD or lymphadenopathy. CHEST: Clear to auscultation bilaterally. CARDIOVASCULAR: Regular rate and rhythm. ABDOMEN: Soft, tender in left lower quadrant. Nondistended. Positive bowel sounds. There is no hepatosplenomegaly or stigmata of chronic liver disease. EXTREMITIES: No clubbing, cyanosis, or edema. SKIN: Soft, pink. Good turgor. LABORATORY STUDIES AND RADIOGRAPHIC STUDIES: Reviewed in the HPI. IMPRESSION: Tom Borrero is a 66-year-old female with acute diverticulitis with abscess formation. PLAN: At the present time, I would recommend the patient continue on IV Zosyn and vancomycin therapy as per the primary team. I would recommend surgical consultation secondary to abscess formation as she may need further intervention if she does not respond clinically to IV antibiotics. Secondary considerations could be for transfer to a tertiary care center for drainage of the abscess if it does not resolve spontaneously with IV antibiotic therapy. She will need an outpatient colonoscopy in 6 weeks following completion of her antibiotic therapy though she has no indication for emergent endoscopic procedure at this time and in fact endoscopic procedure would be contraindicated as there is an increased risk for colonic perforation with concurrent acute diverticulitis. Once again, thanks for allowing me to participate in the care of this patient. If you have any further questions, please do not hesitate in contacting me. KIKE
[2016-11-15] MEDS: ONDANSETRON INJ 2 MG/ML 2 ML VIAL IV PRN (21:36)
[2016-11-15 23:07] VITALS: BP 91/55; PULSE 70; TEMP 36.6; O2SAT 96
[2016-11-16] MEDS: RANITIDINE IV 50 MG in DEXTROSE 5% 100ML 100 ML IV SCH ×3 (00:05→16:53)
[2016-11-16] MEDS: NSS + 20MEQ KCL 1000ML 1,000 ML IV SCH ×2 (01:24→09:48)
[2016-11-16] MEDS: VANCOMYCIN INJ 750 MG in SODIUM CHLORIDE 0.9% 250ML 250 ML IV SCH ×2 (01:24→15:07)
[2016-11-16] MEDS: PIPERACILL/TAZOBAC IV 3.375 GM in DEXTROSE 5% 100ML 100 ML IV SCH ×3 (01:57→18:25)
[2016-11-16 06:46] LABS: BASO % 0.4 %; BASO ABS # 0.03 K/uL (0-0.2); COMPLETE YES; EOS % 0.8 %; HEMATOCRIT 35.7 % (37-47); IG% 0.1 %; LYMPH % 14.2 %; LYMPH ABS # 1.11 K/uL (1.2-3.4); MEAN CELL VOLUME 88.6 fL (80-100); MEAN CORPUSCULAR HGB CONC 33.9 g/dl (32-36); MONO % 7.9 %; NEUT % 76.6 %; PLATELET COUNT 177 K/uL (130-400); RED BLOOD COUNT 4.03 M/uL (4.2-5.4)
[2016-11-16 06:48] LABS: INR 1.1 (0.9-1.1); PARTIAL THROMBOPLASTIN RATIO 1.1; PROTHROMBIN TIME (PATIENT) 12.2 SECONDS (9.0-12.0)
[2016-11-16 07:26] LABS: BUN/CREATININE RATIO 15.9 (10-20); CALCIUM 8.2 mg/dl (8.5-10.1); CREATININE 0.55 mg/dl (0.60-1.20); MAGNESIUM 2.2 mg/dl (1.8-2.4); POTASSIUM 3.5 mmol/L (3.5-5.1)
[2016-11-16 07:27] VITALS: BP 100/63; PULSE 70; TEMP 36.8; O2SAT 96
[2016-11-16] MEDS: ONDANSETRON INJ 2 MG/ML 2 ML VIAL IV PRN (08:23)
--- NOTE | 2016-11-16 10:10 | Gastroenterology Progress Note ---
Progress Note Date of Service: Nov 16, 2016 Subjective Pt evaluation today including: conversation w/ patient, physical exam, chart review, lab review, review of studies, review of inpatient medication list Patient reports improved abdominal pain today stating "its minimal". Mild diarrhea. No nausea or vomiting or fever/chills. She is tolerating ice chips. Continues IV antibiotics. States she was seen by general surgery this morning and there are no plans for surgical intervention at this time. Review of Systems Constitutional: + see HPI Respiratory: No problem reported Cardiac: No problem reported Abdomen: + see HPI Medications Current Inpatient Medications Medications (Trade) Dose Ordered Sig/Jewel Route Start Time Stop Time Status Last Admin Dose Admin Ioversol (Optiray 320) 100 ml UD PRN IV 11/15/16 08:00 11/19/16 07:59 Levetiracetam (Keppra Tab) 500 mg QPM PO 11/15/16 21:00 12/15/16 20:59 11/15/16 20:21 500 MG Ondansetron HCl (Zofran Inj) 4 mg Q6H PRN IV 11/15/16 13:00 12/15/16 12:59 11/16/16 08:23 4 MG Acetaminophen 100 ml @ 400 mls/hr Q8H PRN IV 11/15/16 13:00 12/15/16 12:59 11/15/16 19:31 400 MLS/HR Potassium Chloride/Sodium Chloride 1,000 ml @ 100 mls/hr Q10H IV 11/15/16 15:00 12/15/16 12:52 11/16/16 09:48 100 MLS/HR Morphine Sulfate (MoRPHine SULFATE INJ) 2 mg Q2H PRN IV 11/15/16 13:00 11/29/16 12:59 11/15/16 16:36 2 MG Morphine Sulfate (MoRPHine SULFATE INJ) 4 mg Q2H PRN IV 11/15/16 13:00 11/29/16 12:59 Piperacillin Sod/ Tazobactam Sod 3.375 gm/Dextrose 115 ml @ 28.75 mls/ hr Q8H IV 11/15/16 18:00 11/25/16 17:59 11/16/16 09:47 28.75 MLS/HR Ranitidine HCl 50 mg/Dextrose 102 ml @ 200 mls/hr Q8H IV 11/15/16 16:00 12/15/16 15:59 11/16/16 07:41 200 MLS/HR Vancomycin HCl (Consult) 1 ea UD PRN N/A 11/15/16 13:15 12/15/16 13:14 Piperacillin Sod/ Tazobactam Sod (Consult) 1 ea UD PRN N/A 11/15/16 13:15 12/15/16 13:14 Vancomycin HCl 750 mg/Sodium Chloride 265 ml @ 125 mls/hr Q12H IV 11/16/16 02:00 11/26/16 01:59 11/16/16 01:24 125 MLS/HR Objective Vital Signs Date Time Temp Pulse Resp B/P (MAP) Pulse Ox O2 Delivery O2 Flow Rate FiO2 11/16/16 08:00 Room Air 11/16/16 07:27 36.8 70 16 100/63 (75) 96 11/16/16 00:00 Room Air 11/15/16 23:07 36.6 70 16 91/55 (67) 96 Room Air 11/15/16 16:00 99 Room Air 11/15/16 14:41 36.7 76 16 103/64 (77) 99 11/15/16 13:42 36.6 70 18 122/66 98 11/15/16 13:35 70 11/15/16 13:22 75 18 122/66 98 Room Air 11/15/16 12:50 98 Room Air 11/15/16 11:53 70 15 122/66 98 Room Air 11/15/16 11:01 65 18 109/65 99 Room Air Physical Exam General Appearance: no apparent distress Eyes: EOMI Neck: supple Respiratory/Chest: lungs clear, normal breath sounds, no respiratory distress Cardiovascular: regular rate, rhythm, no gallop, no murmur Abdomen: normal bowel sounds, soft, + tenderness (LLQ) Extremities: no pedal edema Neurologic/Psych: alert, normal mood/affect, oriented x 3 Skin: warm/dry Laboratory Results Last 24 Hours Test 11/16/16 06:06 White Blood Count 7.80 K/uL Red Blood Count 4.03 M/uL Hemoglobin 12.1 g/dL Hematocrit 35.7 % Mean Corpuscular Volume 88.6 fL Mean Corpuscular Hemoglobin 30.0 pg Mean Corpuscular Hemoglobin Concent 33.9 g/dl Platelet Count 177 K/uL Mean Platelet Volume 12.0 fL Neutrophils (%) (Auto) 76.6 % Lymphocytes (%) (Auto) 14.2 % Monocytes (%) (Auto) 7.9 % Eosinophils (%) (Auto) 0.8 % Basophils (%) (Auto) 0.4 % Neutrophils # (Auto) 5.97 K/uL Lymphocytes # (Auto) 1.11 K/uL Monocytes # (Auto) 0.62 K/uL Eosinophils # (Auto) 0.06 K/uL Basophils # (Auto) 0.03 K/uL RDW Standard Deviation 40.7 fL RDW Coefficient of Variation 12.5 % Immature Granulocyte % (Auto) 0.1 % Immature Granulocyte # (Auto) 0.01 K/uL Prothrombin Time 12.2 SECONDS Prothromb Time International Ratio 1.1 Activated Partial Thromboplast Time 29.6 SECONDS Partial Thromboplastin Ratio 1.1 Sodium Level 141 mmol/L Potassium Level 3.5 mmol/L Chloride Level 105 mmol/L Carbon Dioxide Level 28 mmol/L Anion Gap 8.0 mmol/L Blood Urea Nitrogen 9 mg/dl Creatinine 0.55 mg/dl Est Creatinine Clear Calc Drug Dose 88.1 ml/min Estimated GFR () 114.1 Estimated GFR (Non- 98.4 BUN/Creatinine Ratio 15.9 Random Glucose 87 mg/dl Calcium Level 8.2 mg/dl Magnesium Level 2.2 mg/dl Total Bilirubin 1.1 mg/dl Direct Bilirubin 0.3 mg/dl Aspartate Amino Transf (AST/SGOT) 9 U/L Alanine Aminotransferase (ALT/SGPT) 10 U/L Alkaline Phosphatase 69 U/L Total Protein 5.9 gm/dl Albumin 2.6 gm/dl Assessment and Plan Patient is a 66 year-old female admitted with complicated acute diverticulitis with suspected abscess formation and LLQ abdominal pain and diarrhea. 1. Continue IV antibiotics as prescribed. 2. Await formal consultation from general surgery. 3. Supportive measures per primary team. 4. Outpatient colonoscopy as planned by Dr. Murcia. Agree with DALIA Waggoner as above Abd: Soft, NT, ND, +BS Doing much better Continue IV Abx Advance diet to clears in AM Outpatient colonoscopy in 6 weeks.
--- NOTE | 2016-11-16 10:13 | Surgery Consultation ---
Consultation Date of Consultation: Nov 16, 2016. Attending Physician: Neal Smith MD, PhD Reason for Consultation: Acute diverticulitis with abscess History of Present Illness Tom is a pleasant 66 year-old female who presented to emergency department on 11/15/2016 with complaint of left lower quadrant abdominal pain that began 2 weeks ago but increased in intensity yesterday. States her pain originally was cramping in nature and had associated diarrhea however the pain increased yesterday and she presented to the emergency department. Denies of any associated fever, chills, rectal bleeding, or blood in stools. She has not had a colonoscopy. No previous similar episodes and has never been diagnosed with diverticulitis before. She had a CT scan of the abdomen and pelvis which showed wall thickening of the sigmoid colon with a 13 mm intramural abscess concerning for acute diverticulitis however no evidence of microperforation. She had no leukocytosis on admission. She was placed on IV Zosyn and vancomycin , IV fluids, and kept NPO with adequate IV pain management as needed. At time of evaluation, she states her pain is better, not as severe as it was but still located in the Left lower abdomen. Tina of any fever, chills, nausea, or vomiting. Past Medical/Surgical History Medical Problems: (1) Acute diverticulitis Status: Acute (2) Cough Status: Acute (3) Dizziness Status: Acute (4) Pharyngitis Status: Acute (5) URI (upper respiratory infection) Status: Acute Family History Diabetes mellitus FH: heart disease Seizures Social History Smoking Status: Never Smoker Smokeless Tobacco Use: No Alcohol Use: none Drug Use: none Marital Status: Housing Status: lives with family Allergies Coded Allergies: NUTS (Verified Allergy, Intermediate, unknown, 11/15/16) Parsley (Verified Allergy, Intermediate, unknown, 11/15/16) Home Medications Scheduled Levetiracetam (Keppra), 500 MG PO QPM Current Inpatient Medications Current Inpatient Medications Medications (Trade) Dose Ordered Sig/Jewel Route Start Time Stop Time Status Last Admin Dose Admin Ioversol (Optiray 320) 100 ml UD PRN IV 11/15/16 08:00 11/19/16 07:59 Levetiracetam (Keppra Tab) 500 mg QPM PO 11/15/16 21:00 12/15/16 20:59 11/15/16 20:21 500 MG Ondansetron HCl (Zofran Inj) 4 mg Q6H PRN IV 11/15/16 13:00 12/15/16 12:59 11/16/16 08:23 4 MG Acetaminophen 100 ml @ 400 mls/hr Q8H PRN IV 11/15/16 13:00 12/15/16 12:59 11/15/16 19:31 400 MLS/HR Potassium Chloride/Sodium Chloride 1,000 ml @ 100 mls/hr Q10H IV 11/15/16 15:00 12/15/16 12:52 11/16/16 09:48 100 MLS/HR Morphine Sulfate (MoRPHine SULFATE INJ) 2 mg Q2H PRN IV 11/15/16 13:00 11/29/16 12:59 11/15/16 16:36 2 MG Morphine Sulfate (MoRPHine SULFATE INJ) 4 mg Q2H PRN IV 11/15/16 13:00 11/29/16 12:59 Piperacillin Sod/ Tazobactam Sod 3.375 gm/Dextrose 115 ml @ 28.75 mls/ hr Q8H IV 11/15/16 18:00 11/25/16 17:59 11/16/16 09:47 28.75 MLS/HR Ranitidine HCl 50 mg/Dextrose 102 ml @ 200 mls/hr Q8H IV 11/15/16 16:00 12/15/16 15:59 11/16/16 07:41 200 MLS/HR Vancomycin HCl (Consult) 1 ea UD PRN N/A 11/15/16 13:15 12/15/16 13:14 Piperacillin Sod/ Tazobactam Sod (Consult) 1 ea UD PRN N/A 11/15/16 13:15 12/15/16 13:14 Vancomycin HCl 750 mg/Sodium Chloride 265 ml @ 125 mls/hr Q12H IV 11/16/16 02:00 11/26/16 01:59 11/16/16 01:24 125 MLS/HR Review of Systems Constitutional: No fever, No chills, No sweats Respiratory: No shortness of breath Cardiovascular: No chest pain Abdomen: + pain (LLQ), + diarrhea, No nausea, No vomiting, No GI bleeding Genitourinary - Female: No dysuria Hematologic / Lymphatic: No abnormal bleeding/bruising Integumentary: No rash Physical Exam Date Time Temp Pulse Resp B/P (MAP) Pulse Ox O2 Delivery O2 Flow Rate FiO2 11/16/16 08:00 Room Air 11/16/16 07:27 36.8 70 16 100/63 (75) 96 11/16/16 00:00 Room Air 11/15/16 23:07 36.6 70 16 91/55 (67) 96 Room Air 11/15/16 16:00 99 Room Air 11/15/16 14:41 36.7 76 16 103/64 (77) 99 11/15/16 13:42 36.6 70 18 122/66 98 11/15/16 13:35 70 11/15/16 13:22 75 18 122/66 98 Room Air 11/15/16 12:50 98 Room Air 11/15/16 11:53 70 15 122/66 98 Room Air 11/15/16 11:01 65 18 109/65 99 Room Air General Appearance: WD/WN, no apparent distress Head: normocephalic, atraumatic Eyes: sclerae normal ENT: hearing grossly normal Neck: trachea midline Respiratory/Chest: lungs clear, normal breath sounds, no respiratory distress, no accessory muscle use Cardiovascular: regular rate, rhythm, no murmur Abdomen/GI: soft, no organomegaly, no pulsatile mass, + tenderness (LLQ on palpation, no rigidity or guarding) Back: normal inspection Extremities/Musculoskelatal: normal inspection Neurologic/Psych: alert, normal mood/affect, oriented x 3 Skin: normal color, warm/dry, no rash Laboratory Results Last 24 Hours Test 11/16/16 06:06 White Blood Count 7.80 K/uL Red Blood Count 4.03 M/uL Hemoglobin 12.1 g/dL Hematocrit 35.7 % Mean Corpuscular Volume 88.6 fL Mean Corpuscular Hemoglobin 30.0 pg Mean Corpuscular Hemoglobin Concent 33.9 g/dl Platelet Count 177 K/uL Mean Platelet Volume 12.0 fL Neutrophils (%) (Auto) 76.6 % Lymphocytes (%) (Auto) 14.2 % Monocytes (%) (Auto) 7.9 % Eosinophils (%) (Auto) 0.8 % Basophils (%) (Auto) 0.4 % Neutrophils # (Auto) 5.97 K/uL Lymphocytes # (Auto) 1.11 K/uL Monocytes # (Auto) 0.62 K/uL Eosinophils # (Auto) 0.06 K/uL Basophils # (Auto) 0.03 K/uL RDW Standard Deviation 40.7 fL RDW Coefficient of Variation 12.5 % Immature Granulocyte % (Auto) 0.1 % Immature Granulocyte # (Auto) 0.01 K/uL Prothrombin Time 12.2 SECONDS Prothromb Time International Ratio 1.1 Activated Partial Thromboplast Time 29.6 SECONDS Partial Thromboplastin Ratio 1.1 Sodium Level 141 mmol/L Potassium Level 3.5 mmol/L Chloride Level 105 mmol/L Carbon Dioxide Level 28 mmol/L Anion Gap 8.0 mmol/L Blood Urea Nitrogen 9 mg/dl Creatinine 0.55 mg/dl Est Creatinine Clear Calc Drug Dose 88.1 ml/min Estimated GFR () 114.1 Estimated GFR (Non- 98.4 BUN/Creatinine Ratio 15.9 Random Glucose 87 mg/dl Calcium Level 8.2 mg/dl Magnesium Level 2.2 mg/dl Total Bilirubin 1.1 mg/dl Direct Bilirubin 0.3 mg/dl Aspartate Amino Transf (AST/SGOT) 9 U/L Alanine Aminotransferase (ALT/SGPT) 10 U/L Alkaline Phosphatase 69 U/L Total Protein 5.9 gm/dl Albumin 2.6 gm/dl Assessment & Plan Acute diverticulitis with intramural abscess measuring 13 mm -vitals stable - no leukocytosis - abdomen soft, tender in LLQ on palpation, no peritonitis Plan: continue conservative management at this time: IV fluids, IV antibiotics, IV pain management, and NPO She will need outpatient colonoscopy in 6 weeks given she has not had one previously will follow Dr. Stevens has seen and examined patient, agrees with above
[2016-11-16] MEDS: MoRPHine SULFATE 4 MG/ML 1 ML CARP\\VIAL IV PRN (10:34)
[2016-11-16 15:01] VITALS: BP 108/67; PULSE 86; TEMP 36.9; O2SAT 98
--- NOTE | 2016-11-16 18:04 | Progress Note ---
Subjective Date of Service: Nov 16, 2016. Subjective Pt evaluation today including: conversation w/ patient, conversation w/ family , physical exam, chart review, lab review, review of studies, review of inpatient medication list Patient doing okay, no obvious complaint, Problem List Medical Problems: (1) Acute diverticulitis Status: Acute (2) Cough Status: Acute (3) Dizziness Status: Acute (4) Pharyngitis Status: Acute (5) URI (upper respiratory infection) Status: Acute Review of Systems Constitutional: No fever, No chills, No sweats, No weight loss, No weakness, No fatigue, No problem reported Eyes: No worsening of vision, No eye pain, No redness, No discharge, No diplopia ENT: No hearing loss, No unusual epistaxis, No nasal symptoms, No sore throat, No tinnitus, No dental problems, No trouble swallowing Respiratory: No cough, No sputum, No wheezing, No shortness of breath, No dyspnea on exertion, No dyspnea at rest, No hemoptysis Cardiac: No chest pain, No orthopnea, No PND, No edema, No claudication, No palpitations Abdomen: No pain, No nausea, No vomiting, No diarrhea, No constipation Musculoskeletal: No joint pain, No muscle pain, No swelling, No calf pain Female : No dysuria, No urinary frequency, No hematuria, No incontinence, No abnormal vaginal bleeding, No vaginal discharge Neurologic: No memory loss, No paralysis, No weakness, No numbness/tingling, No vertigo, No balance problems Psychiatric: No depression symptoms, No anhedonism, No anxiety, No insomnia, No substance abuse Heme: No abnormal bleeding/bruising, No clotting problems, No swollen lymph nodes, No night sweats Endo: No fatigue, No excessive thirst, No excessive urination Skin: No rash, No itch, No new/changing skin lesions, No color change, No bleeding Objective Vital Signs Date Time Temp Pulse Resp B/P (MAP) Pulse Ox O2 Delivery O2 Flow Rate FiO2 11/16/16 16:00 Room Air 11/16/16 15:01 36.9 86 18 108/67 (81) 98 Room Air 11/16/16 08:00 Room Air 11/16/16 07:27 36.8 70 16 100/63 (75) 96 11/16/16 00:00 Room Air 11/15/16 23:07 36.6 70 16 91/55 (67) 96 Room Air Physical Exam General Appearance: WD/WN, no apparent distress Eyes: normal inspection, PERRL, EOMI, sclerae normal ENT: normal ENT inspection, hearing grossly normal, pharynx normal Neck: supple, no adenopathy, thyroid normal, no JVD, no carotid bruits, trachea midline Respiratory/Chest: chest non-tender, lungs clear, normal breath sounds, no respiratory distress, no accessory muscle use Cardiovascular: regular rate, rhythm, no edema, no gallop, no JVD, no murmur Abdomen: normal bowel sounds, non tender, soft, no organomegaly, no pulsatile mass Extremities: normal range of motion, non-tender, normal inspection, no pedal edema, no calf tenderness, normal capillary refill, pelvis stable 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, no motor/sensory deficits, alert, normal mood/affect, oriented x 3 Skin: normal color, warm/dry, no rash Lymphatic: no adenopathy Laboratory Results Last 24 Hours Test 11/16/16 06:06 White Blood Count 7.80 K/uL Red Blood Count 4.03 M/uL Hemoglobin 12.1 g/dL Hematocrit 35.7 % Mean Corpuscular Volume 88.6 fL Mean Corpuscular Hemoglobin 30.0 pg Mean Corpuscular Hemoglobin Concent 33.9 g/dl Platelet Count 177 K/uL Mean Platelet Volume 12.0 fL Neutrophils (%) (Auto) 76.6 % Lymphocytes (%) (Auto) 14.2 % Monocytes (%) (Auto) 7.9 % Eosinophils (%) (Auto) 0.8 % Basophils (%) (Auto) 0.4 % Neutrophils # (Auto) 5.97 K/uL Lymphocytes # (Auto) 1.11 K/uL Monocytes # (Auto) 0.62 K/uL Eosinophils # (Auto) 0.06 K/uL Basophils # (Auto) 0.03 K/uL RDW Standard Deviation 40.7 fL RDW Coefficient of Variation 12.5 % Immature Granulocyte % (Auto) 0.1 % Immature Granulocyte # (Auto) 0.01 K/uL Prothrombin Time 12.2 SECONDS Prothromb Time International Ratio 1.1 Activated Partial Thromboplast Time 29.6 SECONDS Partial Thromboplastin Ratio 1.1 Sodium Level 141 mmol/L Potassium Level 3.5 mmol/L Chloride Level 105 mmol/L Carbon Dioxide Level 28 mmol/L Anion Gap 8.0 mmol/L Blood Urea Nitrogen 9 mg/dl Creatinine 0.55 mg/dl Est Creatinine Clear Calc Drug Dose 88.1 ml/min Estimated GFR () 114.1 Estimated GFR (Non- 98.4 BUN/Creatinine Ratio 15.9 Random Glucose 87 mg/dl Calcium Level 8.2 mg/dl Magnesium Level 2.2 mg/dl Total Bilirubin 1.1 mg/dl Direct Bilirubin 0.3 mg/dl Aspartate Amino Transf (AST/SGOT) 9 U/L Alanine Aminotransferase (ALT/SGPT) 10 U/L Alkaline Phosphatase 69 U/L Total Protein 5.9 gm/dl Albumin 2.6 gm/dl Assessment and Plan 66-year-old admitted because of Acute diverticulitis with transmural abscess on 11/15/2016 Acute diverticulitis with transmural abscess, stable Continue IV fluid, continue Zosyn 3.375 mg IV every 6 hours, Protonix 40 mg IV daily, Zofran 4 mg IV every 6 hours when necessary. GI and surgeon input appreciated Seizure disorder--continue Keppra 500 mg by mouth every evening. GI and DVT prophylaxis is covered Continued [facility] stay due to: multiple IV medications needed Discharge planning: home
[2016-11-16] MEDS: ACETAMINOPHEN IV 100 ML IV PRN (18:26)
[2016-11-16] MEDS: LEVETIRACETAM 500 MG TAB PO SCH (21:07)
[2016-11-16 23:10] VITALS: BP 101/63; PULSE 70; TEMP 36.7; O2SAT 97
[2016-11-17] MEDS: RANITIDINE IV 50 MG in DEXTROSE 5% 100ML 100 ML IV SCH ×3 (00:26→16:32)
[2016-11-17] MEDS: PIPERACILL/TAZOBAC IV 3.375 GM in DEXTROSE 5% 100ML 100 ML IV SCH ×3 (02:08→18:25)
[2016-11-17] MEDS: NSS + 20MEQ KCL 1000ML 1,000 ML IV SCH ×3 (02:08→16:32)
[2016-11-17] MEDS: VANCOMYCIN INJ 750 MG in SODIUM CHLORIDE 0.9% 250ML 250 ML IV SCH (02:08)
[2016-11-17 06:35] LABS: BASO % 0.5 %; BASO ABS # 0.03 K/uL (0-0.2); COMPLETE YES; EOS % 1.6 %; HEMATOCRIT 35.9 % (37-47); IG% 0.2 %; LYMPH % 22.3 %; LYMPH ABS # 1.28 K/uL (1.2-3.4); MEAN CELL VOLUME 87.3 fL (80-100); MEAN CORPUSCULAR HEMOGLOBIN 28.5 pg (25-34); MEAN CORPUSCULAR HGB CONC 32.6 g/dl (32-36); MEAN PLATELET VOLUME 11.4 fL (7.4-10.4); MONO % 7.7 %; NEUT % 67.7 %; PLATELET COUNT 191 K/uL (130-400); RED BLOOD COUNT 4.11 M/uL (4.2-5.4); WHITE BLOOD COUNT 5.75 K/uL (4.8-10.8)
[2016-11-17 06:44] LABS: INR 1.2 (0.9-1.1); PARTIAL THROMBOPLASTIN RATIO 1.2; PROTHROMBIN TIME (PATIENT) 12.6 SECONDS (9.0-12.0)
[2016-11-17 07:00] LABS: BUN/CREATININE RATIO 11.6 (10-20); CALCIUM 8.2 mg/dl (8.5-10.1); CREATININE 0.58 mg/dl (0.60-1.20); MAGNESIUM 2.1 mg/dl (1.8-2.4)
[2016-11-17 07:28] VITALS: BP 95/58; PULSE 70; TEMP 36.7; O2SAT 99
--- NOTE | 2016-11-17 09:48 | Gastroenterology Progress Note ---
Progress Note Date of Service: Nov 17, 2016 Subjective Pt evaluation today including: conversation w/ patient, physical exam, chart review, lab review, review of studies, review of inpatient medication list Patient reports continued improvement in regard to abdominal pain. Worsening diarrhea. No bloody stools. C Diff has been ordered by Dr. Smith. Continues IV antibiotics. Remains NPO. No leukocytosis. No plan for surgical intervention. Review of Systems Constitutional: No fever, No chills Abdomen: + see HPI Medications Current Inpatient Medications Medications (Trade) Dose Ordered Sig/Jewel Route Start Time Stop Time Status Last Admin Dose Admin Ioversol (Optiray 320) 100 ml UD PRN IV 11/15/16 08:00 11/19/16 07:59 Levetiracetam (Keppra Tab) 500 mg QPM PO 11/15/16 21:00 12/15/16 20:59 11/16/16 21:07 500 MG Ondansetron HCl (Zofran Inj) 4 mg Q6H PRN IV 11/15/16 13:00 12/15/16 12:59 11/16/16 08:23 4 MG Acetaminophen 100 ml @ 400 mls/hr Q8H PRN IV 11/15/16 13:00 12/15/16 12:59 11/16/16 18:26 400 MLS/HR Potassium Chloride/Sodium Chloride 1,000 ml @ 100 mls/hr Q10H IV 11/15/16 15:00 12/15/16 12:52 11/17/16 07:42 100 MLS/HR Morphine Sulfate (MoRPHine SULFATE INJ) 2 mg Q2H PRN IV 11/15/16 13:00 11/29/16 12:59 11/15/16 16:36 2 MG Morphine Sulfate (MoRPHine SULFATE INJ) 4 mg Q2H PRN IV 11/15/16 13:00 11/29/16 12:59 11/16/16 10:34 4 MG Piperacillin Sod/ Tazobactam Sod 3.375 gm/Dextrose 115 ml @ 28.75 mls/ hr Q8H IV 11/15/16 18:00 11/25/16 17:59 11/17/16 09:40 28.75 MLS/HR Ranitidine HCl 50 mg/Dextrose 102 ml @ 200 mls/hr Q8H IV 11/15/16 16:00 12/15/16 15:59 11/17/16 07:42 200 MLS/HR Vancomycin HCl (Consult) 1 ea UD PRN N/A 11/15/16 13:15 12/15/16 13:14 Piperacillin Sod/ Tazobactam Sod (Consult) 1 ea UD PRN N/A 11/15/16 13:15 12/15/16 13:14 Vancomycin HCl 750 mg/Sodium Chloride 265 ml @ 125 mls/hr Q12H IV 11/16/16 02:00 11/26/16 01:59 11/17/16 02:08 125 MLS/HR Objective Vital Signs Date Time Temp Pulse Resp B/P (MAP) Pulse Ox O2 Delivery O2 Flow Rate FiO2 11/17/16 08:00 Room Air 11/17/16 07:28 36.7 70 18 95/58 (70) 99 Room Air 11/16/16 23:59 Room Air 11/16/16 23:10 36.7 70 20 101/63 (76) 97 Room Air 11/16/16 16:00 Room Air 11/16/16 15:01 36.9 86 18 108/67 (81) 98 Room Air Physical Exam General Appearance: no apparent distress Respiratory/Chest: lungs clear, normal breath sounds, no respiratory distress Cardiovascular: regular rate, rhythm, no gallop, no murmur Abdomen: normal bowel sounds, soft, + tenderness (LLQ) Neurologic/Psych: alert, normal mood/affect, oriented x 3 Laboratory Results Last 24 Hours Test 11/17/16 06:07 White Blood Count 5.75 K/uL Red Blood Count 4.11 M/uL Hemoglobin 11.7 g/dL Hematocrit 35.9 % Mean Corpuscular Volume 87.3 fL Mean Corpuscular Hemoglobin 28.5 pg Mean Corpuscular Hemoglobin Concent 32.6 g/dl Platelet Count 191 K/uL Mean Platelet Volume 11.4 fL Neutrophils (%) (Auto) 67.7 % Lymphocytes (%) (Auto) 22.3 % Monocytes (%) (Auto) 7.7 % Eosinophils (%) (Auto) 1.6 % Basophils (%) (Auto) 0.5 % Neutrophils # (Auto) 3.90 K/uL Lymphocytes # (Auto) 1.28 K/uL Monocytes # (Auto) 0.44 K/uL Eosinophils # (Auto) 0.09 K/uL Basophils # (Auto) 0.03 K/uL RDW Standard Deviation 39.9 fL RDW Coefficient of Variation 12.3 % Immature Granulocyte % (Auto) 0.2 % Immature Granulocyte # (Auto) 0.01 K/uL Prothrombin Time 12.6 SECONDS Prothromb Time International Ratio 1.2 Activated Partial Thromboplast Time 29.9 SECONDS Partial Thromboplastin Ratio 1.2 Sodium Level 143 mmol/L Potassium Level 4.0 mmol/L Chloride Level 107 mmol/L Carbon Dioxide Level 28 mmol/L Anion Gap 8.0 mmol/L Blood Urea Nitrogen 7 mg/dl Creatinine 0.58 mg/dl Est Creatinine Clear Calc Drug Dose 83.5 ml/min Estimated GFR () 112.1 Estimated GFR (Non- 96.7 BUN/Creatinine Ratio 11.6 Random Glucose 70 mg/dl Calcium Level 8.2 mg/dl Magnesium Level 2.1 mg/dl Total Bilirubin 0.7 mg/dl Direct Bilirubin 0.2 mg/dl Aspartate Amino Transf (AST/SGOT) 11 U/L Alanine Aminotransferase (ALT/SGPT) 11 U/L Alkaline Phosphatase 68 U/L Total Protein 5.8 gm/dl Albumin 2.7 gm/dl Assessment and Plan Patient is a 66 year-old female admitted with complicated acute diverticulitis with suspected abscess formation and LLQ abdominal pain and diarrhea. 1. Continue IV antibiotics as prescribed. Await C Diff testing as ordered. 2. Diet advancement to clear liquids. 3. Supportive measures per primary team. 4. Outpatient colonoscopy as planned by Dr. Murcia in 6 weeks.
--- NOTE | 2016-11-17 11:15 | Progress Note ---
Subjective Date of Service: Nov 17, 2016. Subjective Pt evaluation today including: conversation w/ patient, conversation w/ family , physical exam, chart review, lab review, review of studies, conversation w/ philatelic consultant, review of inpatient medication list Report has a lot of diarrhea, no abdominal pain, only have some mild abdominal discomfort Problem List Medical Problems: (1) Acute diverticulitis Status: Acute (2) Cough Status: Acute (3) Dizziness Status: Acute (4) Pharyngitis Status: Acute (5) URI (upper respiratory infection) Status: Acute Review of Systems Constitutional: + fatigue, No fever, No chills, No sweats, No weight loss, No weakness, No problem reported Eyes: No worsening of vision, No eye pain, No redness, No discharge, No diplopia ENT: No hearing loss, No unusual epistaxis, No nasal symptoms, No sore throat, No tinnitus, No dental problems, No trouble swallowing Respiratory: No cough, No sputum, No wheezing, No shortness of breath, No dyspnea on exertion, No dyspnea at rest, No hemoptysis Cardiac: No chest pain, No orthopnea, No PND, No edema, No claudication, No palpitations Abdomen: + diarrhea, + problem reported (mild discomfort), No pain, No nausea, No vomiting, No constipation Musculoskeletal: No joint pain, No muscle pain, No swelling, No calf pain Female : No dysuria, No urinary frequency, No hematuria, No incontinence, No abnormal vaginal bleeding, No vaginal discharge Neurologic: No memory loss, No paralysis, No weakness, No numbness/tingling, No vertigo, No balance problems Psychiatric: No depression symptoms, No anhedonism, No anxiety, No insomnia, No substance abuse Heme: No abnormal bleeding/bruising, No clotting problems, No swollen lymph nodes, No night sweats Endo: No fatigue, No excessive thirst, No excessive urination Skin: No rash, No itch, No new/changing skin lesions, No color change, No bleeding Objective Vital Signs Date Time Temp Pulse Resp B/P (MAP) Pulse Ox O2 Delivery O2 Flow Rate FiO2 11/17/16 08:00 Room Air 11/17/16 07:28 36.7 70 18 95/58 (70) 99 Room Air 11/16/16 23:59 Room Air 11/16/16 23:10 36.7 70 20 101/63 (76) 97 Room Air 11/16/16 16:00 Room Air 11/16/16 15:01 36.9 86 18 108/67 (81) 98 Room Air Physical Exam General Appearance: WD/WN, no apparent distress Eyes: normal inspection, PERRL, EOMI, sclerae normal ENT: normal ENT inspection, hearing grossly normal, pharynx normal Neck: supple, no adenopathy, thyroid normal, no JVD, no carotid bruits, trachea midline Respiratory/Chest: chest non-tender, lungs clear, normal breath sounds, no respiratory distress, no accessory muscle use Cardiovascular: regular rate, rhythm, no edema, no gallop, no JVD, no murmur Abdomen: normal bowel sounds, non tender, soft, no organomegaly, no pulsatile mass Extremities: normal range of motion, non-tender, normal inspection, no pedal edema, no calf tenderness, normal capillary refill, pelvis stable 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, no motor/sensory deficits, alert, normal mood/affect, oriented x 3 Skin: normal color, warm/dry, no rash Lymphatic: no adenopathy Laboratory Results Last 24 Hours Test 11/17/16 06:07 White Blood Count 5.75 K/uL Red Blood Count 4.11 M/uL Hemoglobin 11.7 g/dL Hematocrit 35.9 % Mean Corpuscular Volume 87.3 fL Mean Corpuscular Hemoglobin 28.5 pg Mean Corpuscular Hemoglobin Concent 32.6 g/dl Platelet Count 191 K/uL Mean Platelet Volume 11.4 fL Neutrophils (%) (Auto) 67.7 % Lymphocytes (%) (Auto) 22.3 % Monocytes (%) (Auto) 7.7 % Eosinophils (%) (Auto) 1.6 % Basophils (%) (Auto) 0.5 % Neutrophils # (Auto) 3.90 K/uL Lymphocytes # (Auto) 1.28 K/uL Monocytes # (Auto) 0.44 K/uL Eosinophils # (Auto) 0.09 K/uL Basophils # (Auto) 0.03 K/uL RDW Standard Deviation 39.9 fL RDW Coefficient of Variation 12.3 % Immature Granulocyte % (Auto) 0.2 % Immature Granulocyte # (Auto) 0.01 K/uL Prothrombin Time 12.6 SECONDS Prothromb Time International Ratio 1.2 Activated Partial Thromboplast Time 29.9 SECONDS Partial Thromboplastin Ratio 1.2 Sodium Level 143 mmol/L Potassium Level 4.0 mmol/L Chloride Level 107 mmol/L Carbon Dioxide Level 28 mmol/L Anion Gap 8.0 mmol/L Blood Urea Nitrogen 7 mg/dl Creatinine 0.58 mg/dl Est Creatinine Clear Calc Drug Dose 83.5 ml/min Estimated GFR () 112.1 Estimated GFR (Non- 96.7 BUN/Creatinine Ratio 11.6 Random Glucose 70 mg/dl Calcium Level 8.2 mg/dl Magnesium Level 2.1 mg/dl Total Bilirubin 0.7 mg/dl Direct Bilirubin 0.2 mg/dl Aspartate Amino Transf (AST/SGOT) 11 U/L Alanine Aminotransferase (ALT/SGPT) 11 U/L Alkaline Phosphatase 68 U/L Total Protein 5.8 gm/dl Albumin 2.7 gm/dl Assessment and Plan 66-year-old admitted because of Acute diverticulitis with transmural abscess on 11/15/2016 Acute diverticulitis with transmural abscess, stable Continue IV fluid, continue Zosyn 3.375 mg IV every 6 hours, Protonix 40 mg IV daily, Zofran 4 mg IV every 6 hours when necessary. GI and surgeon input appreciated Await C Diff testing as ordered Diet advancement to clear liquids. Continue supportive measures per primary team. Per recommend from GI , Outpatient colonoscopy as planned by Dr. Murcia in 6 weeks. Seizure disorder--continue Keppra 500 mg by mouth every evening. We'll follow up surgeons input, to see when we could to repeat abdominal CT GI and DVT prophylaxis is covered Continued [facility] stay due to: multiple IV medications needed Discharge planning: home
[2016-11-17] MEDS ORDERED: VANCOMYCIN TROUGH SCH (13:30)
--- NOTE | 2016-11-17 13:45 | Surgery Progress Note ---
Surgery Progress Note Date of Service Nov 17, 2016. Subjective Post OP Day: HD # 2 + feeling well, + complaints (abdominal cramping with diarrhea), + bowel movement (diarrhea), + flatus, + pain controlled, + diet (tolerated clear liquids), No chest pain, No SOB, No nausea, No vomiting Objective Vital Signs: Date Time Temp Pulse Resp B/P (MAP) Pulse Ox O2 Delivery O2 Flow Rate FiO2 11/17/16 08:00 Room Air 11/17/16 07:28 36.7 70 18 95/58 (70) 99 Room Air 11/16/16 23:59 Room Air 11/16/16 23:10 36.7 70 20 101/63 (76) 97 Room Air 11/16/16 16:00 Room Air 11/16/16 15:01 36.9 86 18 108/67 (81) 98 Room Air General Appearance: WD/WN, no apparent distress Head: normocephalic, atraumatic Neck: trachea midline Respiratory/Chest: no respiratory distress, no accessory muscle use Abdomen: non distended, soft, + tenderness (minimal in the LLQ, much improved) Laboratory Results: Results Past 24 Hours Test 11/17/16 06:07 11/17/16 13:26 Range/Units White Blood Count 5.75 4.8-10.8 K/uL Red Blood Count 4.11 4.2-5.4 M/uL Hemoglobin 11.7 12.0-16.0 g/dL Hematocrit 35.9 37-47 % Mean Corpuscular Volume 87.3 80-100 fL Mean Corpuscular Hemoglobin 28.5 25-34 pg Mean Corpuscular Hemoglobin Concent 32.6 32-36 g/dl Platelet Count 191 130-400 K/uL Mean Platelet Volume 11.4 7.4-10.4 fL Neutrophils (%) (Auto) 67.7 % Lymphocytes (%) (Auto) 22.3 % Monocytes (%) (Auto) 7.7 % Eosinophils (%) (Auto) 1.6 % Basophils (%) (Auto) 0.5 % Neutrophils # (Auto) 3.90 1.4-6.5 K/uL Lymphocytes # (Auto) 1.28 1.2-3.4 K/uL Monocytes # (Auto) 0.44 0.11-0.59 K/uL Eosinophils # (Auto) 0.09 0-0.5 K/uL Basophils # (Auto) 0.03 0-0.2 K/uL RDW Standard Deviation 39.9 36.4-46.3 fL RDW Coefficient of Variation 12.3 11.5-14.5 % Immature Granulocyte % (Auto) 0.2 % Immature Granulocyte # (Auto) 0.01 0.00-0.02 K/uL Prothrombin Time 12.6 9.0-12.0 SECONDS Prothromb Time International Ratio 1.2 0.9-1.1 Activated Partial Thromboplast Time 29.9 21.0-31.0 SECONDS Partial Thromboplastin Ratio 1.2 Sodium Level 143 136-145 mmol/L Potassium Level 4.0 3.5-5.1 mmol/L Chloride Level 107 98-107 mmol/L Carbon Dioxide Level 28 21-32 mmol/L Anion Gap 8.0 3-11 mmol/L Blood Urea Nitrogen 7 7-18 mg/dl Creatinine 0.58 0.60-1.20 mg/dl Est Creatinine Clear Calc Drug Dose 83.5 ml/min Estimated GFR () 112.1 Estimated GFR (Non- 96.7 BUN/Creatinine Ratio 11.6 10-20 Random Glucose 70 70-99 mg/dl Calcium Level 8.2 8.5-10.1 mg/dl Magnesium Level 2.1 1.8-2.4 mg/dl Total Bilirubin 0.7 0.2-1 mg/dl Direct Bilirubin 0.2 0-0.2 mg/dl Aspartate Amino Transf (AST/SGOT) 11 15-37 U/L Alanine Aminotransferase (ALT/SGPT) 11 12-78 U/L Alkaline Phosphatase 68 45-117 U/L Total Protein 5.8 6.4-8.2 gm/dl Albumin 2.7 3.4-5.0 gm/dl Microbiology Results 11/17/16 C.difficile Toxin B Gene (PCR), Received Pending Assessment & Plan Acute diverticulitis with 13 mm intramural abscess - no leukocytosis - abdominal pain resolved, now crampy with diarrhea, c.diff pending - tolerated clear liquids Plan: Continue Conservative management and advance diet as tolerated await c.diff results Continue pain management as needed no surgical intervention at this time Will continue to follow Dr. Stevens has seen and examined patient, agrees with above
[2016-11-17] MEDS ORDERED: NURSING VERBAL MED ORDER ONE (14:00)
[2016-11-17] MEDS: METRONIDAZOLE 500 MG TAB PO SCH ×2 (14:11→21:23)
[2016-11-17 15:42] VITALS: BP 117/73; PULSE 73; TEMP 37.1; O2SAT 100
[2016-11-17 16:00] VITALS: O2SAT 100
[2016-11-17] MEDS: LEVETIRACETAM 500 MG TAB PO SCH (21:22)
[2016-11-17 22:56] VITALS: BP 111/71; PULSE 76; TEMP 36.9; O2SAT 98
[2016-11-18 00:01] VITALS: O2SAT 98
[2016-11-18] MEDS: RANITIDINE IV 50 MG in DEXTROSE 5% 100ML 100 ML IV SCH ×4 (00:52→23:33)
[2016-11-18] MEDS: PIPERACILL/TAZOBAC IV 3.375 GM in DEXTROSE 5% 100ML 100 ML IV SCH ×2 (02:13→10:20)
[2016-11-18] MEDS: NSS + 20MEQ KCL 1000ML 1,000 ML IV SCH (03:19)
[2016-11-18 06:37] LABS: BASO % 0.8 %; BASO ABS # 0.04 K/uL (0-0.2); COMPLETE YES; EOS % 2.6 %; HEMATOCRIT 36.6 % (37-47); IG% 0.2 %; LYMPH % 28.4 %; MEAN CELL VOLUME 87.1 fL (80-100); MEAN CORPUSCULAR HGB CONC 34.4 g/dl (32-36); MEAN PLATELET VOLUME 11.8 fL (7.4-10.4); PLATELET COUNT 222 K/uL (130-400); WHITE BLOOD COUNT 4.93 K/uL (4.8-10.8)
[2016-11-18 06:45] LABS: INR 1.2 (0.9-1.1); PARTIAL THROMBOPLASTIN RATIO 1.2; PROTHROMBIN TIME (PATIENT) 12.7 SECONDS (9.0-12.0)
[2016-11-18 07:10] LABS: BUN/CREATININE RATIO 4.1 (10-20); CREATININE 0.6 mg/dl (0.60-1.20); POTASSIUM 3.5 mmol/L (3.5-5.1)
[2016-11-18 07:11] LABS: CALCIUM 8.6 mg/dl (8.5-10.1)
[2016-11-18 07:21] VITALS: BP 117/72; PULSE 65; TEMP 36.3; O2SAT 98
[2016-11-18] MEDS: METRONIDAZOLE 500 MG TAB PO SCH ×3 (07:48→21:08)
[2016-11-18] MEDS: SACCHAROMYCES BOUL (FLORASTOR) 250 MG CAP PO SCH (07:48)
[2016-11-18] MEDS: MoRPHine SULFATE 4 MG/ML 1 ML CARP\\VIAL IV PRN (08:00)
--- NOTE | 2016-11-18 09:35 | SURGERY PROGRESS NOTE ---
DATE: 11/18/2016 DATE: 11/18/2016. Covering for [facility]. Tom seems quite comfortable this morning. Her vitals showed a temperature of 36.3, pulse 65, respirations 18, blood pressure 117/72. I&O, she states she has some liquid bowel movement this morning. Her abdomen is completely benign. She has no tenderness. No masses, no rebound. Her last labs this morning showed a white count 4.93, hemoglobin 12.9, BUN 2, creatinine 0.60. She is tolerating some liquids this morning. From my point of view, the patient could be discharged. I would keep her on Cipro and Flagyl for another 5 days and follow up with the primary care on discharge. If she has not had a recent colonoscopy that should be entertained and have it done about 6 weeks.
[2016-11-18 15:09] VITALS: BP 92/58; PULSE 63; TEMP 36.6; O2SAT 97
[2016-11-18 16:00] VITALS: O2SAT 97
--- NOTE | 2016-11-18 16:51 | Progress Note ---
Subjective Date of Service: Nov 18, 2016. Subjective Pt evaluation today including: conversation w/ patient, conversation w/ family , physical exam, chart review, lab review, review of studies, conversation w/ senior research consultant, review of inpatient medication list Continue doing well and improving, tolerate diet, diarrhea is better, 1 diarrhea today Problem List Medical Problems: (1) Acute diverticulitis Status: Acute (2) Cough Status: Acute (3) Dizziness Status: Acute (4) Pharyngitis Status: Acute (5) URI (upper respiratory infection) Status: Acute Review of Systems Constitutional: No fever, No chills, No sweats, No weight loss, No weakness, No fatigue, No problem reported Eyes: No worsening of vision, No eye pain, No redness, No discharge, No diplopia ENT: No hearing loss, No unusual epistaxis, No nasal symptoms, No sore throat, No tinnitus, No dental problems, No trouble swallowing Respiratory: No cough, No sputum, No wheezing, No shortness of breath, No dyspnea on exertion, No dyspnea at rest, No hemoptysis Cardiac: No chest pain, No orthopnea, No PND, No edema, No claudication, No palpitations Abdomen: + diarrhea, No pain, No nausea, No vomiting, No constipation Musculoskeletal: No joint pain, No muscle pain, No swelling, No calf pain Female : No dysuria, No urinary frequency, No hematuria, No incontinence, No abnormal vaginal bleeding, No vaginal discharge Neurologic: No memory loss, No paralysis, No weakness, No numbness/tingling, No vertigo, No balance problems Psychiatric: No depression symptoms, No anhedonism, No anxiety, No insomnia, No substance abuse Heme: No abnormal bleeding/bruising, No clotting problems, No swollen lymph nodes, No night sweats Endo: No fatigue, No excessive thirst, No excessive urination Skin: No rash, No itch, No new/changing skin lesions, No color change, No bleeding Objective Vital Signs Date Time Temp Pulse Resp B/P (MAP) Pulse Ox O2 Delivery O2 Flow Rate FiO2 11/18/16 15:09 36.6 63 18 92/58 (69) 97 Room Air 11/18/16 08:00 Room Air 11/18/16 07:21 36.3 65 18 117/72 (87) 98 Room Air 11/18/16 00:01 98 Room Air 11/17/16 22:56 36.9 76 16 111/71 (84) 98 Room Air Physical Exam General Appearance: WD/WN, no apparent distress Eyes: normal inspection, PERRL, EOMI, sclerae normal ENT: normal ENT inspection, hearing grossly normal, pharynx normal Neck: supple, no adenopathy, thyroid normal, no JVD, no carotid bruits, trachea midline Respiratory/Chest: chest non-tender, lungs clear, normal breath sounds, no respiratory distress, no accessory muscle use Cardiovascular: regular rate, rhythm, no edema, no gallop, no JVD, no murmur Abdomen: normal bowel sounds, non tender, soft, no organomegaly, no pulsatile mass Extremities: normal range of motion, non-tender, normal inspection, no pedal edema, no calf tenderness, normal capillary refill, pelvis stable 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, no motor/sensory deficits, alert, normal mood/affect, oriented x 3 Skin: normal color, warm/dry, no rash Lymphatic: no adenopathy Laboratory Results Last 24 Hours Test 11/18/16 06:01 White Blood Count 4.93 K/uL Red Blood Count 4.20 M/uL Hemoglobin 12.6 g/dL Hematocrit 36.6 % Mean Corpuscular Volume 87.1 fL Mean Corpuscular Hemoglobin 30.0 pg Mean Corpuscular Hemoglobin Concent 34.4 g/dl Platelet Count 222 K/uL Mean Platelet Volume 11.8 fL Neutrophils (%) (Auto) 56.0 % Lymphocytes (%) (Auto) 28.4 % Monocytes (%) (Auto) 12.0 % Eosinophils (%) (Auto) 2.6 % Basophils (%) (Auto) 0.8 % Neutrophils # (Auto) 2.76 K/uL Lymphocytes # (Auto) 1.40 K/uL Monocytes # (Auto) 0.59 K/uL Eosinophils # (Auto) 0.13 K/uL Basophils # (Auto) 0.04 K/uL RDW Standard Deviation 40.1 fL RDW Coefficient of Variation 12.5 % Immature Granulocyte % (Auto) 0.2 % Immature Granulocyte # (Auto) 0.01 K/uL Prothrombin Time 12.7 SECONDS Prothromb Time International Ratio 1.2 Activated Partial Thromboplast Time 30.3 SECONDS Partial Thromboplastin Ratio 1.2 Sodium Level 145 mmol/L Potassium Level 3.5 mmol/L Chloride Level 108 mmol/L Carbon Dioxide Level 29 mmol/L Anion Gap 8.0 mmol/L Blood Urea Nitrogen 2 mg/dl Creatinine 0.60 mg/dl Est Creatinine Clear Calc Drug Dose 80.7 ml/min Estimated GFR () 110.9 Estimated GFR (Non- 95.7 BUN/Creatinine Ratio 4.1 Random Glucose 102 mg/dl Calcium Level 8.6 mg/dl Magnesium Level 2.0 mg/dl Total Bilirubin 0.4 mg/dl Direct Bilirubin 0.1 mg/dl Aspartate Amino Transf (AST/SGOT) 10 U/L Alanine Aminotransferase (ALT/SGPT) 12 U/L Alkaline Phosphatase 72 U/L Total Protein 6.2 gm/dl Albumin 2.9 gm/dl Assessment and Plan 66-year-old admitted because of Acute diverticulitis with transmural abscess on 11/15/2016 Acute diverticulitis with transmural abscess, stable Discontinue IV antibiotics and IV fluid, start Cipro by mouth for 5 days more, continue metronidazole GI and surgeon input appreciated Continue advanced diet increase activity Continue supportive measures per primary team. Per recommend from GI , Outpatient colonoscopy as planned by Dr. Murcia in 6 weeks. Surgeon input appreciated Seizure disorder--continue Keppra 500 mg by mouth every evening. Possible discharge tomorrow GI and DVT prophylaxis is covered Continued [facility] stay due to: home environment unsafe for pt Discharge planning: home
[2016-11-18] MEDS: LEVETIRACETAM 500 MG TAB PO SCH (21:08)
[2016-11-18] MEDS: CIPROFLOXACIN 500 MG TAB PO SCH (21:08)
[2016-11-18 23:57] VITALS: BP 100/61; PULSE 72; TEMP 36.8; O2SAT 95
[2016-11-19] MEDS: RANITIDINE IV 50 MG in DEXTROSE 5% 100ML 100 ML IV SCH ×2
[2016-11-19] MEDS ORDERED: NURSING VERBAL MED ORDER ONE (00:15)
[2016-11-19] MEDS: RANITIDINE HCL 150 MG TAB PO SCH ×2 (00:49→08:43)
[2016-11-19 06:21] LABS: BASO % 1.1 %; BASO ABS # 0.05 K/uL (0-0.2); COMPLETE YES; EOS % 3.6 %; HEMATOCRIT 35.2 % (37-47); IG% 0.4 %; LYMPH % 30.9 %; LYMPH ABS # 1.44 K/uL (1.2-3.4); MEAN CELL VOLUME 87.1 fL (80-100); MEAN CORPUSCULAR HGB CONC 34.4 g/dl (32-36); MEAN PLATELET VOLUME 11.3 fL (7.4-10.4); MONO % 11.6 %; NEUT % 52.4 %; PLATELET COUNT 224 K/uL (130-400); RED BLOOD COUNT 4.04 M/uL (4.2-5.4); WHITE BLOOD COUNT 4.66 K/uL (4.8-10.8)
[2016-11-19 06:57] LABS: BUN/CREATININE RATIO 11.3 (10-20); CALCIUM 8.5 mg/dl (8.5-10.1); CREATININE 0.59 mg/dl (0.60-1.20); POTASSIUM 3.7 mmol/L (3.5-5.1)
[2016-11-19 08:00] VITALS: O2SAT 97
[2016-11-19] MEDS ORDERED: CPR500 PO (08:18)
[2016-11-19] MEDS ORDERED: SACC250C3 PO (08:18)
[2016-11-19] MEDS ORDERED: MTR500 PO (08:18)
--- NOTE | 2016-11-19 08:18 | Discharge Instructions ---
Discharge Instructions Date of Service Nov 19, 2016. Admission Reason for Admission: Acute Diverticulitis, Colonic Diverticular Abscess Discharge Discharge Diagnosis / Problem: Acute diverticulitis with transmural abscess Discharge Goals Goal(s): Decrease discomfort, Improve function, Increase independence, Improve disease control, Improve nutritional status, Learn about illness, Diagnostic testing, Therapeutic intervention, Prevent Disease Progression, Specific goals Activity Recommendations Activity Limitations: resume your previous activity . Instructions / Follow-Up Instructions / Follow-Up you have Acute diverticulitis with transmural abscess, you need to follow up with pcp star abdominal CT to make sure abscess is resolved in 1 week you have Cdiff diarrhea, continue Cipro by mouth for 4 days more, continue metronidazole for 5 days more Per recommend from GI , Outpatient colonoscopy as planned by Dr. Murcia in 6 weeks you need to be see by Dr. Murcia in 3-4 week your pcp can contact Surgeon Dr. Salcedo if needs low residual diet - you need to follow up with your primary care physician in 1 week, - take medication as instructed, never overdose or any misuse, or take with alcohol, because misuse of medicine may cause organ damage or , call your primary care physician if have questions of medicaitons. - call your primary care physician OR go to local emergency room if has any fever/chill, chest pain, shortness of breathing, nausea/vomiting/abdominal pain , facial droop/slurry speech/local weakness, or if has any questions. - fall precaution - diet as instructed - you need to follow up with your subspecialists - you should understand that it is important to follow up the above instruction , and "not following the above instruction" may cause delayed or missed care of your medical conditions which may cause permanent organ damage and even . Current Hospital Diet Patient's current hospital diet: Low Fiber Diet Discharge Diet Recommended Diet: AHA Diet (Heart Healthy) (low residual diet) Procedures Procedures Performed: no Pending Studies Studies pending at discharge: no Medical Emergencies . Who to Call and When: Medical Emergencies: If at any time you feel your situation is an emergency, please call 911 immediately. . Non-Emergent Contact Non-Emergency issues call your: Primary Care Provider, Event Set Up Specialist, Surgeon . . "Provider Documentation" section prepared by Neal Smith. . VTE Core Measure Inpt VTE Proph given/why not?: SCD's
[2016-11-19 08:25] VITALS: BP 99/62; PULSE 65; TEMP 36.4; O2SAT 98
[2016-11-19] MEDS: SACCHAROMYCES BOUL (FLORASTOR) 250 MG CAP PO SCH (08:43)
[2016-11-19] MEDS: CIPROFLOXACIN 500 MG TAB PO SCH (08:43)
[2016-11-19] MEDS: METRONIDAZOLE 500 MG TAB PO SCH ×2 (08:43→14:20)
--- NOTE | 2016-11-19 08:49 | SURGERY PROGRESS NOTE ---
DATE: 11/19/[address] Stevens. SUMMARY: Tom is still here. I thought she was going to be discharged yesterday, but apparently her plans are lesser today. She is feeling fine. She is having no abdominal issues. She is anxious to go home. Last vitals showed a temperature of 36.4, pulse 65, respirations 20, blood pressure 99/62. Her laboratory this morning, her white count is 466. There is no left shift, hemoglobin is 12.1, potassium 3.7. As stated, her abdomen is benign. At this point, we will leave further investigation to the [facility] Service. She certainly needs colonoscopy, probably in 6 weeks and this was discussed again with the patient. KIKE
[2016-11-19 10:38] VITALS: BP 99/62; PULSE 65; TEMP 36.4; O2SAT 98
[2016-11-19 13:15] VITALS: BP 100/62; PULSE 72; TEMP 36.4; O2SAT 96
--- NOTE | 2016-11-19 16:42 | Discharge Summary ---
Discharge Summary Date of Service Nov 19, 2016. Discharge Summary Admission Date: Nov 15, 2016 at 12:51 Discharge Date: Nov 19, 2016 Principal Diagnosis: Acute diverticulitis with transmural abscess, Problems/Secondary Diagnoses: Cdiff diarrhea, Procedures: No Consultations: GI consult and surgeon consult Medication Reconciliation New Medications: Ciprofloxacin (Ciprofloxacin HCl) 500 Mg Tab 500 MG PO BID for 4 Days, #8 TAB Metronidazole (Metronidazole) 500 Mg Tab 500 MG PO TID for 6 Days, #18 TAB Saccharomyces Boulardii (Florastor) 250 Mg Cap 250 MG PO DAILY for 6 Days, #6 CAP Continued Medications: Levetiracetam (Keppra) 500 Mg Tab 500 MG PO QPM, TAB Discharge Exam Was having small amount of diarrhea this morning, has been getting better, no more diarrhea, up and walk, tolerated diet and patient requests to go home Review of Systems: Constitutional: No fever, No chills, No sweats, No weight loss, No weakness , No fatigue, No problem reported ENT: No hearing loss, No unusual epistaxis, No nasal symptoms, No sore throat, No tinnitus, No dental problems, No trouble swallowing, No problem reported Cardiovascular: No chest pain, No orthopnea, No PND, No edema, No claudication, No palpitations, No problem reported Abdomen: No pain, No nausea, No vomiting, No diarrhea, No constipation, No GI bleeding, No problem reported Musculoskeletal: No joint pain, No muscle pain, No swelling, No calf pain, No problem reported Genitourinary - Female: No dysuria, No urinary frequency, No urinary urgency , No urinary incontinence, No urinary retention, No hematuria, No dysmenorrhea, No menorrhagia, No metrorrhagia, No rash, No vaginal bleeding, No vaginal discharge, No vaginal itching, No vulvodynia, No , No problem reported Neurologic: No memory loss, No paralysis, No weakness, No numbness/tingling , No vertigo, No balance problems, No problem reported Psychiatric: No depression symptoms, No anhedonism, No anxiety, No insomnia , No substance abuse, No problem reported Endocrine: No fatigue, No excessive thirst, No excessive urination, No problem reported Hematologic / Lymphatic: No abnormal bleeding/bruising, No clotting problems , No swollen lymph nodes, No night sweats, No problem reported Integumentary: No rash, No itch, No new/changing skin lesions, No color change, No bleeding, No problem reported Physical Exam: General Appearance: WD/WN, no apparent distress Eyes: normal inspection, PERRL, EOMI ENT: normal ENT inspection, hearing grossly normal, TMs normal, pharynx normal Neck: supple, no adenopathy Respiratory/Chest: chest non-tender, + decreased breath sounds Cardiovascular: regular rate, rhythm, no edema, no gallop, no JVD, no murmur Abdomen / GI: normal bowel sounds, non tender, soft, no organomegaly, no pulsatile mass Extremities: normal inspection, no calf tenderness 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 Murcia in 6 weeks. Surgeon input appreciated, he feels patient okay to discharge Seizure disorder--continue Keppra 500 mg by mouth every evening. Possible discharge tomorrow GI and DVT prophylaxis is covered Patient discharged in stable condition Discharge instruction you have Acute diverticulitis with transmural abscess, you need to follow up with pcp the repeat abdominal CT to make sure abscess is resolved in 1 week you have Cdiff diarrhea, continue Cipro by mouth for 4 days more, continue metronidazole for 5 days more Per recommend from GI , Outpatient colonoscopy as planned by Dr. Murcia in 6 weeks you need to be see by Dr. Murcia in 3-4 week your pcp can contact Surgeon Dr. Salcedo if needs low residual diet - you need to follow up with your primary care physician in 1 week, - take medication as instructed, never overdose or any misuse, or take with alcohol, because misuse of medicine may cause organ damage or , call your primary care physician if have questions of medicaitons. - call your primary care physician OR go to local emergency room if has any fever/chill, chest pain, shortness of breathing, nausea/vomiting/abdominal pain , facial droop/slurry speech/local weakness, or if has any questions. - fall precaution - diet as instructed - you need to follow up with your subspecialists - you should understand that it is important to follow up the above instruction , and "not following the above instruction" may cause delayed or missed care of your medical conditions which may cause permanent organ damage and even . Total Time Spent: Greater than 30 minutes This includes examination of the patient, discharge planning, medication reconciliation, and communication with other providers. Discharge Instructions Please refer to the electronic Patient Visit Report (Discharge Instructions) for additional information. Additional Copies To Billy Herrera M.D.
== END 2016-11-19 17:00 | disposition home or self-care (01) | DRG 392 ==
LOC: C.EDB 07:37 → UNDOADMIN 12:51 → C.MED 12:51 → ENRESERV 13:31
PROVIDERS: ADMIT Hospitalist; ATTEND Hospitalist
DX: K57.20 Diverticulitis of large intestine with perforation and abscess without bleeding (principal); A04.7 Enterocolitis due to Clostridium difficile; G40.909 Epilepsy, unspecified, not intractable, without status epilepticus; Z79.899 Other long term (current) drug therapy; Z83.3 Family history of diabetes mellitus; Z82.49 Family history of ischemic heart disease and other diseases of the circulatory system

== ENCOUNTER → 2016-11-28 | Outpatient (CLI) | payer BC ==
[~2016-11-28] MED LIST changes: +CPR500 PO; -DLN100 PO; +LEVE500T13 PO; -LEVE750T PO; +MTR500 PO; +OPTIRAY 320 IV PRN; +SACC250C3 PO
--- NOTE | 2016-11-28 08:50 | DIAGNOSTIC IMAGING REPORT ---
ABDOMEN AND PELVIS CT WITH IV AND ORAL CONTRAST CT DOSE: 356.50 mGy.cm HISTORY: Diverticulitis 11/19/16 0600 CREAK 0.59 TECHNIQUE: Multiaxial CT images of the abdomen and pelvis were performed following the use of intravenous and oral contrast. COMPARISON STUDY: 11/15/2016 FINDINGS: Lung bases remain clear. Liver spleen and pancreas are uniform. Kidneys negative for an process. Bowel pattern is considered nonobstructive. Continued findings of acute sigmoid diverticulitis. The intramural abscess produces described is less prominent. No current evidence for drainable abscess or collection. Persistent wall thickening and moderate pericolonic infiltrative change stable to slightly improved. IMPRESSION: 1. Acute sigmoid diverticulitis slightly improved from the prior exam. 2. No current evidence for drainable abscess or collection. 3. Intramural collection previously described is not well seen currently. Electronically signed by: Marquis Flores M.D. 11/28/2016 8:48 AM Dictated Date/Time: 11/28/2016 8:41 AM
== END | disposition home or self-care (01) ==
LOC: C.CTS 08:21
PROVIDERS: ATTEND Family Medicine
DX: K57.20 Diverticulitis of large intestine with perforation and abscess without bleeding (principal)

== ENCOUNTER → 2017-04-30 | Outpatient (CLI) | payer BC ==
[~2017-04-30] MED LIST changes: -OPTIRAY 320 IV PRN
== END | disposition home or self-care (01) ==
LOC: C.NEUR 13:13
PROVIDERS: ATTEND Psychiatry & Neurology Neurology
DX: G40.209 Localization-related (focal) (partial) symptomatic epilepsy and epileptic syndromes with complex partial seizures, not intractable, without status epilepticus (principal)

== ENCOUNTER 2017-08-06 08:26 | Emergency (ER) | payer BC, OTHER ==
[~2017-08-06] VITALS: Ht 162.6 cm; Wt 56.6 kg
[2017-08-06 08:32] VITALS: TEMP 37.1; Ht 162.6 cm; Wt 56.6 kg
[2017-08-06] MEDS ORDERED: MoRPHine SULFATE 4 MG/ML 1 ML CARP\\VIAL IV STA (08:44)
[2017-08-06] MEDS ORDERED: SODIUM CHLORIDE 0.9% 1000ML 1,000 ML IV STA (08:44)
[2017-08-06] MEDS ORDERED: OPTIRAY 320 IV PRN (09:00)
[2017-08-06 09:02] LABS: BASO % 0.4 %; BASO ABS # 0.03 K/uL (0-0.2); EOS % 0.4 %; EOS ABS # 0.03 K/uL (0-0.5); HEMATOCRIT 39.8 % (37-47); HEMOGLOBIN 14.1 g/dL (12.0-16.0); IG# 0.02 K/uL (0.00-0.02); LYMPH % 12.7 %; LYMPH ABS # 1.05 K/uL (1.2-3.4); MEAN CELL VOLUME 88.4 fL (80-100); MEAN CORPUSCULAR HEMOGLOBIN 31.3 pg (25-34); MEAN CORPUSCULAR HGB CONC 35.4 g/dl (32-36); MONO % 6.5 %; MONO ABS # 0.54 K/uL (0.11-0.59); NEUT % 79.8 %; NEUT ABS # 6.63 K/uL (1.4-6.5); PLATELET COUNT 139 K/uL (130-400); RED CELL DISTRIBUTION WIDTH CV 12.8 % (11.5-14.5); RED CELL DISTRIBUTION WIDTH SD 41.1 fL (36.4-46.3)
[2017-08-06 09:19] LABS: ALBUMIN 3.5 gm/dl (3.4-5.0); CALCIUM 8.8 mg/dl (8.5-10.1); CREATININE 0.65 mg/dl (0.60-1.20); POTASSIUM 3.6 mmol/L (3.5-5.1)
[2017-08-06 09:22] LABS: TOTAL PROTEIN 6.6 gm/dl (6.4-8.2)
--- NOTE | 2017-08-06 11:30 | DIAGNOSTIC IMAGING REPORT ---
CT OF THE ABDOMEN AND PELVIS WITH CONTRAST CLINICAL HISTORY: Lower abdominal pain. History of diverticulitis with abscess. COMPARISON STUDY: CT of the abdomen and pelvis November 28, 2016. TECHNIQUE: Following IV administration of 116 mL of Optiray-320, axial images of the abdomen and pelvis were obtained from the lung bases to the proximal femurs. Images were reviewed in the axial, sagittal, and coronal planes. IV contrast was administered without complication. A dose lowering technique was utilized adhering to the principles of ALARA. Oral contrast was administered. CT DOSE: 274.88 mGy.cm FINDINGS: The liver, spleen, adrenal glands, pancreas and right kidney are unremarkable. A fat-containing 7 mm left renal lesion is benign. This may reflect an angiomyolipoma or a lipoma. There is no biliary or pancreatic ductal dilatation. There is no pneumatosis, free air or portal venous gas. Extensive sigmoid diverticulosis is noted. There is mild sigmoid colon wall thickening with mild pericolonic infiltration and fluid. There is no free air or abscess. Right ovarian prominence is noted. There are no suspicious skeletal lesions. IMPRESSION: 1. Acute sigmoid diverticulosis. No free air or abscess. Mild sigmoid colon wall thickening with mild pericolonic infiltration and fluid. 2. Right ovarian prominence with minimal adjacent infiltration. This finding is of questionable significance although could reflect adnexal involvement of diverticulitis. A follow-up nonemergent pelvic ultrasound is recommended to exclude a right ovarian lesion. Electronically signed by: Frank Cui M.D. 08/06/2017 11:29 AM Dictated Date/Time: 08/06/2017 11:21 AM
[2017-08-06] MEDS ORDERED: METR500T PO (12:11)
[2017-08-06] MEDS ORDERED: TRAM-10 PO (12:11)
[2017-08-06] MEDS ORDERED: CIPR-255 PO (12:11)
--- NOTE | 2017-08-06 12:12 | EMERGENCY ROOM VISIT NOTE ---
History First contact with patient: 08:37 Chief Complaint: ABDOMINAL PAIN Stated Complaint: INTENSE CRAMPS Nursing Triage Summary: Pt presents with lower abd cramping since Sat. Diarrhea/Constipation. Reports hx of IBS and diverticulitis. Pt states starting to get lower back pain. Denies urinary s/sx. History of Present Illness The patient is a 67 year old female who presents to the Emergency Room via private vehicle accompanied by family with complaints of "intense abdominal cramps". The patient states that since this past Sunday she has been experiencing left lower quadrant abdominal pain that is also suprapubic. She rates the pain as an 8/10 at times. There is associated diarrhea. She states she has a history of diverticulitis with abscess formation. She notes that she did take over the counter pain medication with minimal relief of her pain it is no longer working. There is no vomiting. No fever or chills. Review of Systems A complete 10-point Review of Systems was discussed with the patient, with pertinent positives and negatives listed in the History of Present Illness. All remaining Review of Systems questions can be considered negative unless otherwise specified. Past Medical/Surgical History Medical Problems: (1) Colonic diverticular abscess (2) IBS (irritable bowel syndrome) Surgical Problems: (1) Meningioma Family History Diabetes mellitus FH: heart disease Seizures Social History Smoking Status: Never Smoker Drug Use: none Marital Status: Housing Status: lives with family Current/Historical Medications Scheduled Ciprofloxacin Hcl (Cipro), 500 MG PO BID Metronidazole (Flagyl), 500 MG PO TID Scheduled PRN Tramadol (Ultram), 1 TAB PO TID PRN for Pain Allergies Coded Allergies: NUTS (Verified Allergy, Intermediate, unknown, 08/06/17) Parsley (Verified Allergy, Intermediate, unknown, 08/06/17) Physical Exam Vital Signs Date Time Temp Pulse Resp B/P (MAP) Pulse Ox O2 Delivery O2 Flow Rate FiO2 08/06/17 12:34 82 18 113/68 99 08/06/17 11:52 75 18 103/62 98 Room Air 08/06/17 10:31 119/72 08/06/17 10:26 76 23 100 08/06/17 10:13 121/67 08/06/17 10:08 121/67 08/06/17 09:56 72 18 100 08/06/17 09:31 114/68 08/06/17 09:26 67 18 99 08/06/17 09:12 73 08/06/17 09:03 106/58 08/06/17 08:32 37.1 87 18 108/71 96 Room Air Physical Exam VITAL SIGNS - Vital signs and nursing notes were reviewed. Stable. GENERAL - 67-year-old female appearing her stated age who is in no acute distress. Communicates well with provider and answers questions appropriately. SKIN - Without rashes. HEAD - NC/AT. EYES - Sclera anicteric. EARS - No deformities of external structures noted on gross examination bilaterally. NOSE - Midline and without cyanosis. MOUTH/OROPHARYNX - Without perioral cyanosis. ABDOMEN - Abdominal contour normal without pulsations or visible masses. BS normoactive all four quadrants. LLQ abd tenderness and suprapubic tenderness noted. No palpable masses, hepatosplenomegaly, or ascites noted. \\ Medical Decision & Procedures ER Provider Diagnostic Interpretation: CT OF THE ABDOMEN AND PELVIS WITH CONTRAST CLINICAL HISTORY: Lower abdominal pain. History of diverticulitis with abscess. COMPARISON STUDY: CT of the abdomen and pelvis November 28, 2016. TECHNIQUE: Following IV administration of 116 mL of Optiray-320, axial images of the abdomen and pelvis were obtained from the lung bases to the proximal femurs. Images were reviewed in the axial, sagittal, and coronal planes. IV contrast was administered without complication. A dose lowering technique was utilized adhering to the principles of ALARA. Oral contrast was administered. CT DOSE: 274.88 mGy.cm FINDINGS: The liver, spleen, adrenal glands, pancreas and right kidney are unremarkable. A fat-containing 7 mm left renal lesion is benign. This may reflect an angiomyolipoma or a lipoma. There is no biliary or pancreatic ductal dilatation. There is no pneumatosis, free air or portal venous gas. Extensive sigmoid diverticulosis is noted. There is mild sigmoid colon wall thickening with mild pericolonic infiltration and fluid. There is no free air or abscess. Right ovarian prominence is noted. There are no suspicious skeletal lesions. IMPRESSION: 1. Acute sigmoid diverticulosis. No free air or abscess. Mild sigmoid colon wall thickening with mild pericolonic infiltration and fluid. 2. Right ovarian prominence with minimal adjacent infiltration. This finding is of questionable significance although could reflect adnexal involvement of diverticulitis. A follow-up nonemergent pelvic ultrasound is recommended to exclude a right ovarian lesion. Electronically signed by: Frank Cui M.D. 08/06/2017 11:29 AM Dictated Date/Time: 08/06/2017 11:21 AM Laboratory Results 08/06/17 08:52 Red Blood Count 4.50, Mean Corpuscular Volume 88.4, Mean Corpuscular Hemoglobin 31.3, Mean Corpuscular Hemoglobin Concent 35.4, Mean Platelet Volume 12.0, Neutrophils (%) (Auto) 79.8, Lymphocytes (%) (Auto) 12.7, Monocytes (%) (Auto) 6.5, Eosinophils (%) (Auto) 0.4, Basophils (%) (Auto) 0.4, Neutrophils # (Auto) 6.63, Lymphocytes # (Auto) 1.05, Monocytes # (Auto) 0.54, Eosinophils # (Auto) 0.03, Basophils # (Auto) 0.03 08/06/17 08:52 Test 08/06/17 08:52 08/06/17 09:00 White Blood Count 8.30 K/uL (4.8-10.8) Red Blood Count 4.50 M/uL (4.2-5.4) Hemoglobin 14.1 g/dL (12.0-16.0) Hematocrit 39.8 % (37-47) Mean Corpuscular Volume 88.4 fL (80-100) Mean Corpuscular Hemoglobin 31.3 pg (25-34) Mean Corpuscular Hemoglobin Concent 35.4 g/dl (32-36) Platelet Count 139 K/uL (130-400) Mean Platelet Volume 12.0 fL (7.4-10.4) Neutrophils (%) (Auto) 79.8 % Lymphocytes (%) (Auto) 12.7 % Monocytes (%) (Auto) 6.5 % Eosinophils (%) (Auto) 0.4 % Basophils (%) (Auto) 0.4 % Neutrophils # (Auto) 6.63 K/uL (1.4-6.5) Lymphocytes # (Auto) 1.05 K/uL (1.2-3.4) Monocytes # (Auto) 0.54 K/uL (0.11-0.59) Eosinophils # (Auto) 0.03 K/uL (0-0.5) Basophils # (Auto) 0.03 K/uL (0-0.2) RDW Standard Deviation 41.1 fL (36.4-46.3) RDW Coefficient of Variation 12.8 % (11.5-14.5) Immature Granulocyte % (Auto) 0.2 % Immature Granulocyte # (Auto) 0.02 K/uL (0.00-0.02) Anion Gap 5.0 mmol/L (3-11) Est Creatinine Clear Calc Drug Dose 73.6 ml/min Estimated GFR () 107.2 Estimated GFR (Non- 92.5 BUN/Creatinine Ratio 20.6 (10-20) Calcium Level 8.8 mg/dl (8.5-10.1) Total Bilirubin 1.0 mg/dl (0.2-1) Aspartate Amino Transf (AST/SGOT) 22 U/L (15-37) Alanine Aminotransferase (ALT/SGPT) 18 U/L (12-78) Alkaline Phosphatase 65 U/L (45-117) Total Protein 6.6 gm/dl (6.4-8.2) Albumin 3.5 gm/dl (3.4-5.0) Globulin 3.1 gm/dl (2.5-4.0) Albumin/Globulin Ratio 1.1 (0.9-2) Lipase 128 U/L (73-393) Urine Color YELLOW Urine Appearance CLEAR (CLEAR) Urine pH 6.5 (4.5-7.5) Urine Specific [place] 1.005 (1.000-1.030) Urine Protein NEG (NEG) Urine Glucose (UA) NEG (NEG) Urine Ketones NEG (NEG) Urine Occult Blood TRACE (NEG) Urine Nitrite NEG (NEG) Urine Bilirubin NEG (NEG) Urine Urobilinogen NEG (NEG) Urine Leukocyte Esterase NEG (NEG) Urine WBC (Auto) 0 /hpf (0-5) Urine RBC (Auto) 0-4 /hpf (0-4) Urine Hyaline Casts (Auto) 0 /lpf (0-5) Urine Epithelial Cells (Auto) 0-5 /lpf (0-5) Urine Bacteria (Auto) NEG (NEG) Medications Administered Medications (Trade) Dose Ordered Sig/Jewel Route Start Time Stop Time Status Last Admin Dose Admin Sodium Chloride 1,000 ml @ 999 mls/hr Q1H1M STAT IV 08/06/17 08:44 2/26/18 09:44 DC 08/06/17 08:44 999 MLS/HR Morphine Sulfate (MoRPHine SULFATE INJ) 4 mg NOW STAT IV 08/06/17 08:44 08/06/17 08:45 DC 08/06/17 08:56 4 MG Medical Decision Patient was seen and evaluated as above. She presents to us today with abdominal pain. She has history of diverticulitis with abscess. After obtaining a thorough history and physical examination the above work up was performed. CT scan was performed of the abdomen and pelvis with the use of both oral and IV contrast. She was given morphine for pain and fluids. CBC reveals no concerning leukocytosis or anemia. Metabolic panel reveals no evidence of kidney or liver failure. Lipase normal. Urine reveals trace occult blood. Diverticulitis noted on CT. CT results reviewed with the patient. She appears stable for outpatient management with both Cipro and Flagyl. Patient was educated upon management, had questions answered prior to discharge, and was discharged home in good condition. She will be given tramadol for pain. She notes that she had good response to this in the past with pain. She was educated upon Cipro Flagyl. No red flags in the [employer] drug monitoring system. Medication list reviewed. Patient was found to be normotensive. Case was discussed with the attending physician In the evaluation and treatment of this patient the following differential diagnoses were entertained: Diverticulitis, abscess, perforation, UTI, pyelonephritis, acute abdomen, among others. Impression Primary Impression: Acute diverticulitis Departure Information Dispostion Home / Self-Care Condition GOOD Prescriptions Metronidazole (FLAGYL) 500 Mg Tab 500 MG PO TID for 7 Days, #21 TAB Prov: Gasper Adler PA-C 08/06/17 Ciprofloxacin Hcl (CIPRO) 500 Mg Tab 500 MG PO BID for 7 Days, #14 TAB Prov: Gasper Adelr PA-C 08/06/17 Tramadol (Ultram) 50 Mg Tab 1 TAB PO TID Y for Pain, #9 TAB for initial treatment Prov: Gasper Adler PA-C 08/06/17 Referrals Billy Herrera M.D. (PCP) Patient Instructions My [facility] Additional Instructions You have been treated in the Emergency Department your Abdominal Pain. There is diverticulitis as we discussed. Cipro 1 tablet every 12 hours for 7 days. Flagyl 1 tablet every 8 hours for 7 days. These may need to be extended if your pain persists/symptoms persist with her family doctor. Please return if worsening. Tramadol for pain. Please no driving with this. One tablet every 8 hours. For pain control, you can use the following [id number] medicines (if >12 yo): - Regular strength (325mg/tab) Tylenol (acetaminophen) 2 tabs every 4-6 hours as needed. Do not exceed 12 tablets in a 24 hour period. Avoid taking more than 3 grams (3000 mg) of Tylenol per day. This includes any other sources of acetaminophen you may take on a regular basis. - Regular strength (200 mg/tab) Advil (ibuprofen) 1-2 tabs every 4-6 hours as needed. Do not exceed a dose of 3200 mg per day. Drink plenty of water and stay well hydrated. As with any trip to the Emergency Department, you should follow-up with your Primary Care Provider from today's visit. Please take to a bland diet as we discussed. Return to the emergency department if your symptoms persist despite treatment plan outlined above or if the following symptoms occur: increased fevers, chills , worsening nausea/vomiting, blood in your stool or urine.
[2017-08-06 12:34] VITALS: BP 113/68; PULSE 82; O2SAT 99
== END 2017-08-06 12:36 | disposition home or self-care (01) ==
LOC: C.EDB 08:28 → C.EDA 12:36
DX: K57.32 Diverticulitis of large intestine without perforation or abscess without bleeding (principal); K58.9 Irritable bowel syndrome, unspecified; Z91.018 Allergy to other foods; Z83.3 Family history of diabetes mellitus; Z82.49 Family history of ischemic heart disease and other diseases of the circulatory system; Z82.0 Family history of epilepsy and other diseases of the nervous system

== ENCOUNTER 2017-08-28 08:36 | Emergency (ER) | payer OTHER ==
[~2017-08-28] VITALS: Ht 162.6 cm; Wt 56.1 kg
[~2017-08-28 08:36] MED LIST changes: +CIPR-255 PO; -CPR500 PO; -LEVE500T13 PO; -MTR500 PO; -SACC250C3 PO; +TRAM-10 PO
[2017-08-28 08:43] VITALS: TEMP 38.5; Ht 162.6 cm; Wt 56.1 kg
--- NOTE | 2017-08-28 09:10 | EMERGENCY ROOM VISIT NOTE ---
History Report prepared by Adeline: Mili Chandra Under the Supervision of: Dr. Neal Wetzel M.D. First contact with patient: 08:58 Chief Complaint: FEVER Stated Complaint: HIGH FEVER, ABDOMINAL PAIN History of Present Illness The patient is a 67 year old female who presents to the Emergency Room with complaints of worsening generalized illness beginning 2 days ago. The patient reports a cough, right lower back pain, body aches, abdominal pain, sorethroat, and a running nose. She denies any diarrhea, leg swelling, or urinary burning. The patient states her abdominal pain does not feel like her diverticulitis she had a month ago. The patient took NyQuil and Excedrin. She denies taking any Tylenol. The patient denies any sick contact. She did not get a flu shot this year. Source of History: patient Onset: two days ago Position: other (generalized) Quality: other (illness) Timing: worsening Associated Symptoms: + sorethroat, + cough, + back pain, No diarrhea, No urinary symptoms Review of Systems See HPI for pertinent positives & negatives. A total of 10 systems reviewed and were otherwise negative. Past Medical & Surgical Medical Problems: (1) Colonic diverticular abscess (2) IBS (irritable bowel syndrome) Surgical Problems: (1) Meningioma Family History Diabetes mellitus FH: heart disease Seizures Social History Smoking Status: Never Smoker Drug Use: none Marital Status: Housing Status: lives with family Current/Historical Medications Scheduled Oseltamivir (Tamiflu), 75 MG PO BID Scheduled PRN Hydrocodone W/ Homatropine (Hycodan 5/1.5MG 5 Ml), 5-10 ML PO Q4H PRN for Cough Allergies Coded Allergies: NUTS (Verified Allergy, Intermediate, unknown, 08/28/17) Parsley (Verified Allergy, Intermediate, unknown, 08/28/17) Physical Exam Vital Signs Date Time Temp Pulse Resp B/P (MAP) Pulse Ox O2 Delivery O2 Flow Rate FiO2 08/28/17 11:20 67 16 100/50 96 08/28/17 10:40 67 16 100/50 96 Room Air 08/28/17 08:43 38.5 101 20 108/72 97 Room Air Physical Exam GENERAL: Patient is dehydrated appearing and in mild distress. EYES: No scleral icterus, unremarkable pupils. ENT: Mucous membranes moist, no nasal congestion.Clear rhinorrhea bilaterally. NECK: No masses appreciated, no meningismus, trachea is midline. RESPIRATORY: Coarse cough noted. No dyspnea. Clear to auscultation and equal bilaterally. No wheeze, no rhonchi. CARDIOVASCULAR: Mildly tachycardic. No murmurs, rubs, gallops appreciated. GASTROINTESTINAL: Abdomen soft, nontender, no peritonitis. Bowel sounds positive. No masses appreciated. BACK: No midline tenderness, no CVA tenderness EXTREMITIES: Normal motion all extremities, no cyanosis, no edema. NEUROLOGIC: Alert and oriented, no acute motor or sensory deficits, no focal weakness, cranial nerves grossly intact. SKIN: Warm to touch. No rash, no jaundice, no diaphoresis. Medical Decision & Procedures ER Provider Diagnostic Interpretation: Radiology results and stated below per my review and radiologist interpretation: CHEST ONE VIEW PORTABLE FINDINGS: Cardiomediastinal silhouette normal. Lungs and pleural spaces clear. Osseous structures normal. Upper abdomen normal. IMPRESSION: 1. No acute cardiopulmonary disease. Electronically signed by: Thaddeus Manning M.D. Laboratory Results 08/28/17 09:20 Red Blood Count 4.66, Mean Corpuscular Volume 89.5, Mean Corpuscular Hemoglobin 30.3, Mean Corpuscular Hemoglobin Concent 33.8, Mean Platelet Volume 12.3, Neutrophils (%) (Auto) 72.6, Lymphocytes (%) (Auto) 15.6, Monocytes (%) (Auto) 10.8, Eosinophils (%) (Auto) 0.5, Basophils (%) (Auto) 0.5, Neutrophils # (Auto ) 3.03, Lymphocytes # (Auto) 0.65, Monocytes # (Auto) 0.45, Eosinophils # (Auto ) 0.02, Basophils # (Auto) 0.02 08/28/17 09:20 Test 08/28/17 09:20 08/28/17 09:47 White Blood Count 4.17 K/uL (4.8-10.8) Red Blood Count 4.66 M/uL (4.2-5.4) Hemoglobin 14.1 g/dL (12.0-16.0) Hematocrit 41.7 % (37-47) Mean Corpuscular Volume 89.5 fL (80-100) Mean Corpuscular Hemoglobin 30.3 pg (25-34) Mean Corpuscular Hemoglobin Concent 33.8 g/dl (32-36) Platelet Count 128 K/uL (130-400) Mean Platelet Volume 12.3 fL (7.4-10.4) Neutrophils (%) (Auto) 72.6 % Lymphocytes (%) (Auto) 15.6 % Monocytes (%) (Auto) 10.8 % Eosinophils (%) (Auto) 0.5 % Basophils (%) (Auto) 0.5 % Neutrophils # (Auto) 3.03 K/uL (1.4-6.5) Lymphocytes # (Auto) 0.65 K/uL (1.2-3.4) Monocytes # (Auto) 0.45 K/uL (0.11-0.59) Eosinophils # (Auto) 0.02 K/uL (0-0.5) Basophils # (Auto) 0.02 K/uL (0-0.2) RDW Standard Deviation 42.7 fL (36.4-46.3) RDW Coefficient of Variation 13.1 % (11.5-14.5) Immature Granulocyte % (Auto) 0.0 % Immature Granulocyte # (Auto) 0.00 K/uL (0.00-0.02) Platelet Estimate DECREASED Anion Gap 6.0 mmol/L (3-11) Est Creatinine Clear Calc Drug Dose 72.4 ml/min Estimated GFR () 106.7 Estimated GFR (Non- 92.1 BUN/Creatinine Ratio 19.6 (10-20) Calcium Level 8.5 mg/dl (8.5-10.1) Urine Color YELLOW Urine Appearance TURBID (CLEAR) Urine pH 7.0 (4.5-7.5) Urine Specific [place] 1.027 (1.000-1.030) Urine Protein NEG (NEG) Urine Glucose (UA) NEG (NEG) Urine Ketones NEG (NEG) Urine Occult Blood 2+ (NEG) Urine Nitrite NEG (NEG) Urine Bilirubin NEG (NEG) Urine Urobilinogen NEG (NEG) Urine Leukocyte Esterase NEG (NEG) Urine WBC (Auto) 1-5 /hpf (0-5) Urine RBC (Auto) 5-10 /hpf (0-4) Urine Hyaline Casts (Auto) 1-5 /lpf (0-5) Urine Epithelial Cells (Auto) 10-20 /lpf (0-5) Urine Bacteria (Auto) NEG (NEG) Laboratory results as reviewed by me. Medications Administered Medications (Trade) Dose Ordered Sig/Jewel Route Start Time Stop Time Status Last Admin Dose Admin Sodium Chloride 1,000 ml @ 999 mls/hr Q1H1M STAT IV 08/28/17 09:11 08/28/17 10:11 DC 08/28/17 09:23 999 MLS/HR Hydrocodone Bit/ Homatropine Methylb (Hycodan Syrup) 5 ml NOW STAT PO 08/28/17 09:11 08/28/17 09:13 DC 08/28/17 09:22 5 ML Ketorolac Tromethamine (Toradol Inj) 15 mg NOW STAT IV 08/28/17 09:11 08/28/17 09:14 DC 08/28/17 09:22 15 MG Acetaminophen (Tylenol Tab) 1,000 mg NOW STAT PO 08/28/17 09:13 08/28/17 09:15 DC 08/28/17 09:22 1,000 MG ED Course 0900: The patient was evaluated in room B5. A complete history and physical exam was performed. 1048: I updated the patient on her test results. She is resting comfortably. 1130: Reevaluated the patient. Discussed results and discharge instructions: She verbalized understanding and agreement. The patient is ready for discharge. Medical Decision Differential: Viral, Pharyngitis, Cellulitis, Pneumonia, Influenza, Meningitis, Sepsis, Bacteremia, UTI/Pyelonephritis, Endocrine, Toxicologic, amongst other pathologies entertained. 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 Symptoms and exam consistent with Flu. Paraspinal muscle pain in lumbar area with normal UA and I suspect pain is related to flu. Feeling vastly improved with Toradol, Hycodan , Benadryl, fluids. She is in no distress and breathing comfortably. Labs looks OK as does CXR. I do not feel this is PE nor ACS. She is not septic and does not have evidence of meningitis nor bacteremia. I feel this is consistent with influenza and meets criteria for Tamiflu at this time. Hycodan for cough. Discussed symptoms requiring RTED. Medication Reconcilliation Current Medication List: was personally reviewed by me Blood Pressure Screening Patient's blood pressure: Normal blood pressure Impression Primary Impression: Influenza Additional Impression: Dehydration Scribe Attestation The scribe's documentation has been prepared under my direction and personally reviewed by me in its entirety. I confirm that the note above accurately reflects all work, treatment, procedures, and medical decision making performed by me. Departure Information Dispostion Home / Self-Care Prescriptions Oseltamivir (Tamiflu) 75 Mg Cap 75 MG PO BID, #10 CAP Prov: Neal Wetzel M.D. 08/28/17 Hydrocodone W/ Homatropine (HYCODAN 5/1.5MG 5 ML) 1 Syp Syp 5-10 ML PO Q4H Y for Cough, #120 ML Prov: Neal Wetzel M.D. 08/28/17 Referrals Billy Herrera M.D. (PCP) Forms HOME CARE DOCUMENTATION FORM, IMPORTANT VISIT INFORMATION Patient Instructions ED Flu, My [facility] Health Problem Qualifiers
[2017-08-28] MEDS ORDERED: HYDROCODONE/HOMATROPINE SYRUP 5MG/1.5MG 5ML UDP PO STA (09:11)
[2017-08-28] MEDS ORDERED: DiphenhydrAMINE HCL 50 MG/ML VIAL IV STA (09:11)
[2017-08-28] MEDS ORDERED: SODIUM CHLORIDE 0.9% 1000ML 1,000 ML IV STA (09:11)
[2017-08-28] MEDS ORDERED: KETOROLAC TROMETHAMINE 30 MG/ML VIAL IV STA (09:11)
[2017-08-28] MEDS ORDERED: ACETAMINOPHEN 500 MG TAB PO STA (09:13)
--- NOTE | 2017-08-28 09:43 | DIAGNOSTIC IMAGING REPORT ---
CHEST ONE VIEW PORTABLE CLINICAL HISTORY: 67 years-old Female presenting with cough, fevers, chills. TECHNIQUE: Portable upright AP view of the chest was obtained. COMPARISON: 03/17/2016. FINDINGS: Cardiomediastinal silhouette normal. Lungs and pleural spaces clear. Osseous structures normal. Upper abdomen normal. IMPRESSION: 1. No acute cardiopulmonary disease. Electronically signed by: Thaddeus Manning M.D. 08/28/2017 9:42 AM Dictated Date/Time: 08/28/2017 9:42 AM
[2017-08-28 09:49] LABS: HEMATOCRIT 41.7 % (37-47); HEMOGLOBIN 14.1 g/dL (12.0-16.0); MEAN CELL VOLUME 89.5 fL (80-100); MEAN CORPUSCULAR HEMOGLOBIN 30.3 pg (25-34); MEAN CORPUSCULAR HGB CONC 33.8 g/dl (32-36); MEAN PLATELET VOLUME 12.3 fL (7.4-10.4); PLATELET COUNT 128 K/uL (130-400); RED CELL DISTRIBUTION WIDTH CV 13.1 % (11.5-14.5); RED CELL DISTRIBUTION WIDTH SD 42.7 fL (36.4-46.3); WHITE BLOOD COUNT 4.17 K/uL (4.8-10.8)
[2017-08-28 09:52] LABS: CALCIUM 8.5 mg/dl (8.5-10.1); CREATININE 0.66 mg/dl (0.60-1.20); POTASSIUM 3.8 mmol/L (3.5-5.1)
[2017-08-28 10:04] LABS: BASO % 0.5 %; BASO ABS # 0.02 K/uL (0-0.2); EOS % 0.5 %; EOS ABS # 0.02 K/uL (0-0.5); LYMPH % 15.6 %; LYMPH ABS # 0.65 K/uL (1.2-3.4); MONO % 10.8 %; MONO ABS # 0.45 K/uL (0.11-0.59); NEUT % 72.6 %; NEUT ABS # 3.03 K/uL (1.4-6.5)
[2017-08-28] MEDS ORDERED: OSEL75CA12 PO (11:10)
[2017-08-28] MEDS ORDERED: HYDR5SYP11 PO (11:10)
[2017-08-28 11:20] VITALS: BP 100/50; PULSE 67; O2SAT 96
== END 2017-08-28 11:21 | disposition home or self-care (01) ==
LOC: C.EDB 08:37
DX: J10.1 Influenza due to other identified influenza virus with other respiratory manifestations (principal); E86.0 Dehydration; R50.9 Fever, unspecified

== ENCOUNTER → 2017-09-20 | Outpatient (CLI) | payer OTHER ==
[~2017-09-20] MED LIST changes: -CIPR-255 PO; +OSEL75CA12 PO; -TRAM-10 PO
--- NOTE | 2017-09-20 10:11 | DIAGNOSTIC IMAGING REPORT ---
ULTRASOUND OF THE PELVIS CLINICAL HISTORY: Follow-up right prominent right ovary questioned by CT. COMPARISON STUDY: Pelvic CT dated 08/06/2017. TECHNIQUE: Real-time, grayscale, and color flow sonography of the pelvis is performed transabdominally. Images are reviewed in the transverse and longitudinal planes. The patient declined the endovaginal examination. FINDINGS: Uterus: The uterus is normal in size and echotexture, measuring 6.2 x 3.6 x 3.9 cm. Endometrium: The endometrium is normal in appearance, and the endometrial stripe is normal in thickness measuring up to 0.6 cm. A more focal echogenic focus in the fundal region measures up to 9 mm. Ovaries: The right ovary is grossly unremarkable as seen transabdominally, measuring 2.2 x 1.7 x 2.2 cm. The left ovary was not visualized. Pelvis: There is no free fluid in the cul-de-sac. No concerning adnexal lesion is seen. IMPRESSION: 1. The patient declined the endovaginal examination. 2. A structure that likely represents the right ovary is grossly unremarkable as seen on this transabdominal examination. The left ovary was not identified. 3. The endometrial stripe appears mildly thickened for age measuring up to 6 mm. 4. A more focal 9 mm echogenic structure within the endometrial fundus is nonspecific and may represent focal thickening versus a small polyp. Follow-up of the patient's general cargo clerk is recommended. Electronically signed by: Mario Syed M.D. 09/20/2017 10:10 AM Dictated Date/Time: 09/20/2017 10:04 AM
== END | disposition home or self-care (01) ==
LOC: C.ULTR 09:31
PROVIDERS: ATTEND Family Medicine
DX: R93.5 Abnormal findings on diagnostic imaging of other abdominal regions, including retroperitoneum (principal)